=== PATIENT | female | born 1960 | race Caucasian/White ===

== ENCOUNTER 2022-08-04 23:27 | Emergency (ER) | payer OTHER, SELFPAY ==
[2022-08-04 23:38] VITALS: BP 140/93; RESP 12; TEMP 36.3; O2SAT 98; BMI 38.7
[2022-08-04 23:40] VITALS: BP 140/96; PULSE 96; RESP 16; O2SAT 98
[2022-08-05] VITALS: BP 127/74; PULSE 90; RESP 16; O2SAT 96
--- NOTE | 2022-08-05 00:37 | CRLHL7_ITS ---
For Patients: As a result of the Cures Act, medical imaging exams and procedure reports are released immediately into your electronic medical record. You may view this report before your referring provider. If you have questions, please contact your health care provider. INDICATION: Epigastric chest pain TECHNIQUE: Chest radiograph 2 views COMPARISON: None FINDINGS: Mediastinum: The mediastinum is normal in appearance. The heart silhouette is normal in size and morphology. Eventration of the anterior right hemidiaphragm is noted. Lung: Both lungs are unremarkable in appearance. No sign of pleural effusion seen. No pneumothorax is identified. Bone and Soft tissue: Unremarkable for age. IMPRESSION: 1. No acute cardiopulmonary disease is seen. Dictated by Ezra Crane MD @ 08/05/2022 1:25:42 AM Dictated by: Ezra Crane MD @ 08/05/2022 01:25:49 (Electronically Signed)
--- NOTE | 2022-08-05 00:38 | ED_ITS ---
HPI - General Adult General Chief complaint: Abdominal Pain Stated complaint: upper sharp pain in left abdomin/back Time Seen by Provider: 08/05/22 00:28 Source: patient and family Mode of arrival: ambulatory Limitations: no limitations History of Present Illness HPI narrative: 61-year-old female with no prior cardiac history presents to the emergency department with epigastric pain that started 2 hours prior to my assessment time. Came on gradually. Last meal had been about 4 hours prior. At the time of my exam, pain has completely resolved. She tried taking Pepcid AC about 15 minutes after the discomfort started. Now, her pain is completely resolved, having lasted about 90 minutes. Pain was aching in nature, radiated around to the back, accompanied by some mild nausea. She did have an episode of loose stools as well. No trauma or injury, no palpitations, no shortness of breath, no diaphoresis or dizziness. No syncope. No history of arrhythmia. No prior history of coronary artery disease, stress testing or echo. No alcohol tonight. No prior history of similar symptoms. EMR does not reveal a family history of heart disease. She is a nonsmoker. Past medical history is notable for hypertension. Also has a history of breast cancer. Medications reviewed and updated from EMR. She denies drug allergies. Socially she is nonsmoker, denies any current intoxication. ROS is notable for the cardiovascular and GI symptoms as above, otherwise denies times 12 systems. Related Data Home Medications Medication Instructions Recorded Confirmed amlodipine 5 mg tablet 5 mg PO DAILY 07/15/22 07/15/22 losartan 50 mg tablet 50 mg PO DAILY 07/15/22 07/15/22 metoprolol succinate 50 mg mg PO 07/16/22 07/16/22 tablet,extended release 24 hr Allergies Allergy/AdvReac Type Severity Reaction Status Date / Time No Known Drug Allergies Allergy Verified 07/16/22 09:25 [facility] Medical History Breast cancer (2010) Left foot pain Left knee pain Family History Father Bladder cancer Primary cancer of esophagus Mother Diabetes Social History Smoking Status: Never smoker Do you use any of these nicotine containing products: None Second hand tobacco smoke exposure: No How often do you have a drink containing alcohol: 2-4 times a month How many standard drinks containing alcohol do you have on a typical day: 1 or 2 How often do you have six or more drinks on one occasion: Never AUDIT-C Alcohol total score: 2 Non-prescribed substance use: denies use Are you now , , , , never or living with a partner: Social isolation score (0-1 are the most socially isolated patients): 1 service: No Exam Const: Vital Signs, click to edit/add: Vital Signs - 24 hr 08/04/22 23:38 08/04/22 23:40 08/05/22 00:00 Temperature 97.4 F L Pulse Rate [Femora l] 96 Pulse Rate [Pulse Oximeter] 90 Respiratory Rate 12 16 16 Blood Pressure [Ri ght Upper Arm] 140/93 H 140/96 H 127/74 Pulse Oximetry 98 98 96 Oxygen Delivery Me thod Room Air Room Air Room Air 08/05/22 01:29 08/05/22 02:03 Temperature Pulse Rate [Femora l] Pulse Rate [Pulse Oximeter] 95 97 Respiratory Rate 16 18 Blood Pressure [Ri ght Upper Arm] 126/80 132/85 Pulse Oximetry 98 98 Oxygen Delivery Me thod Room Air Room Air Documenting provider has reviewed patient's vital signs: yes Common normals: no apparent distress and alert General appearance: cooperative, comfortable and well kempt HENMT: Common normals: normocephalic Head and scalp: normocephalic Face and sinus: normal facial exam Mouth: oral and palatal mucosa normal Throat: posterior oropharynx normal Eye: Common normals: EOMs intact bilaterally and conjunctivae normal Conjunctiva: conjunctiva(e) normal Neck & C-Spine: Common normals: full ROM and no lymphadenopathy Resp: Common normals: normal respiratory effort, no use of accessory muscles and clear to auscultation bilaterally Effort & inspection: able to speak in complete sentences Auscultation: clear to auscultation bilaterally Cardio: Common normals: regular rate, regular rhythm, S1 normal heart sound, S2 normal heart sound, no murmurs and peripheral pulses 2+ throughout Rate: regular rate Rhythm: regular rhythm Heart sounds: S1 normal and S2 normal Peripheral pulses: pulses 2+ throughout GI: Common normals: Normal to inspection, nondistended, normoactive bowel sounds present, soft to palpation, non-tender, no hepatosplenomegaly and no masses Palpation: soft and no hepatosplenomegaly Other: Pain not reproducible on exam : Common normals: no CVA tenderness Bladder/kidney exam: no CVA tenderness Back & Pelvis: Common normals: no CVA tenderness Extremity: Common normals: normal to inspection, normal capillary refill and no pedal edema Neuro: Sensorium/orientation: alert Speech: speech normal Motor exam: no tremor noted and no movement abnormalities noted Psych: Common normals: mental status grossly normal Appearance: well kempt Insight: insight good Judgement: judgment good Skin: Common normals: no rashes or lesions noted General skin exam: no rashes or lesions noted Course Vital Signs Vital signs: Initial Vital Signs Temperature 97.4 F L 08/04/22 23:38 Temperature Source Temporal Artery Scan 08/04/22 23:38 Respiratory Rate 12 08/04/22 23:38 Blood Pressure 140/93 H 08/04/22 23:38 Blood Pressure Mean 108 08/04/22 23:38 Pulse Oximetry 98 08/04/22 23:38 Oxygen Delivery Method 08/04/22 23:38 Vital Signs Temperature 97.4 F L 08/04/22 23:38 Respiratory Rate 12 08/04/22 23:38 Blood Pressure 140/93 H 08/04/22 23:38 Pulse Oximetry 98 08/04/22 23:38 Oxygen Delivery Method 08/04/22 23:38 Temperature 97.4 F L 08/04/22 23:38 Pulse Rate 97 08/05/22 02:03 Respiratory Rate 18 08/05/22 02:03 Blood Pressure 132/85 08/05/22 02:03 Pulse Oximetry 98 08/05/22 02:03 Oxygen Delivery Method 08/05/22 02:03 Medical Decision Making [facility] Narrative Medical decision making narrative: 7-year-old female with history of hypertension, no prior cardiac disease presenting with epigastric pain that was relieved after taking Pepcid. Does have risk factors for heart disease but reassuring exam. Offered basic workup to look for any underlying cardiac cause and she was agreeable to this. Will perform troponin, EKG, electrolytes, CBC and a chest x-ray to look for any mediastinal widening. Also basic labs to look at liver function and lipase. Albert godoy was agreeable to this. Will update once results available. Update: Patient remains completely symptom-free with no medications given in the ED. Mild leukocytosis is noted, mild elevation of liver enzymes in a nonobstructive pattern noted as well. Or gallstone or underlying gallbladder disease but again afebrile and symptom free. Patient was worried about her heart, this has been ruled out, findings discussed with patient. Counseled that ultrasound could be used to look more closely at the gallbladder, we would need to call someone in an that would take this at least a couple of hours to get results. We discussed conservative management and returning if symptoms worsen. She was agreeable to this. A passed gallstone could explain the mild leukocytosis and mild elevation in transaminases, borderline lipase. Since she was quite symptomatic and is now symptom-free, this makes me lean more towards having passed a gallstone. She was observed for several hours in the ED with no return of her symptoms. She elects for conservative home management, discussed return for recurrence, alarm symptoms that would make me think of cholecystitis, she was agreeable to this. Lab Data Lab results reviewed: Yes I reviewed the patient's lab results Lab results narrative: Mild leukocytosis and elevation in liver enzymes but pain is completely resolved. Repeat exam is reassuring as well. Discussed conservative management versus ultrasound. No sign of heart disease. Patient is agreeable to a trial of conservative management and returning if pain returns. Discussed concern for underlying gallbladder disease, but nonobstructive pattern. Patient reliable for follow-up and was not given any medications in the ER that would be masking her symptoms. Instructed to follow up with primary care provider to have liver enzymes rechecked in a week. Labs: Lab Results 08/05/22 08/05/22 08/05/22 Range/Units 00:37 01:05 01:05 WBC 15.54 H (4.50-11.00) K/uL RBC 4.41 (4.00-5.20) m/uL Hgb 14.2 (12.0-16.0) gm/dL Hct 42.3 (33.0-51.0) % MCV 96 (80-100) fL MCH 32 (26-34) pg MCHC 34 (32-36) gm/dL RDW Coeff of Darryl 12.0 (11.5-15.5) % Plt Count 334 (140-440) K/uL Neut % (Auto) 79.8 H (42.0-72.0) % Lymph % (Auto) 11.1 L (20-44) % Gregg % (Auto) 7.7 (0.0-11.0) % Eos % (Auto) 0.8 (0.0-7.0) % Baso % (Auto) 0.3 (0.0-3.0) % Neut # (Auto) 12.40 H (1.7-7.0) K/uL Lymph # (Auto) 1.70 (0.90-2.90) K/uL Gregg # (Auto) 1.20 H (0.00-0.90) K/UL Eos # (Auto) 0.10 (0.00-0.50) K/uL Baso # (Auto) 0.00 (0.00-0.30) K/uL Sodium 138 (135-149) mmol/L Potassium 4.3 (3.6-5.1) mmol/L Chloride 102 (96-114) mmol/L Carbon Dioxide 29 (20-32) mmol/L BUN 22 (7-30) mg/dL Creatinine 0.7 (0.5-1.5) mg/dL Estimated Creat Clear 80.01 Estimated GFR 99 ml/min Glucose 86 (60-115) mg/dL Calcium 9.4 (8.4-10.6) mg/dL Total Bilirubin 0.7 (0.1-1.5) mg/dL AST 127 H (12-35) U/L ALT 78 H (4-35) U/L Alkaline Phosphatase 53 (40-150) U/L Troponin I < 0.01 L (0.01-0.04) ng/mL NT-Pro-B Natriuret Pep 26 pg/mL Total Protein 7.4 (6.0-8.3) g/dL Albumin 4.5 (3.3-5.0) g/dL Lipase 310 H (23-300) U/L POC Troponin I 0.01 (0.01-0.04) ng/ml Imaging Data Chest x-ray: Attestation: I have reviewed the pertinent imaging results. My impression: Normal Radiologist's impression: IMPRESSION: 1. No acute cardiopulmonary disease is seen. ECG Data Attestation: I personally reviewed and interpreted this ECG as follows: Prior ECG tracings: not available for review Interpretation: No prior EKG. Normal sinus rhythm with good R-wave progression, no left ventricular hypertrophy, normal axis. No significant ST or T-wave abnormalities. Discharge Plan Discharge Clinical Impression: Gallstone Patient Disposition: Home w/ Parent or Adult Condition: Improved Instructions: Gallstones (ED) Additional Instructions: I am glad that your symptoms resolved. As we discussed, I still think this may have been related to your gallbladder. Episodes of pain do tend to last a couple of hours, taking stomach acid medicine may have been coincidental that it helped or your symptoms could be related to gastric reflux. There is a very mild elevation in your liver enzymes, this can be related to more of a mid Western diet and fatty liver, or this could have been mildly inflamed from this gallstone. Since your pain has been completely resolved, I do not recommend that we do an ultrasound today. Eat a bland, low-fat diet for the next 48 hours. No alcohol for the next 3 days. If you continue to have these episodes, this is a sign that we should consider removing her gallbladder. As we also discussed, if you start running a fever, have worsening of symptoms that this could be a sign of infection and I would want for you to come back. It is okay to take Tylenol and/or ibuprofen, but if your symptoms are bothersome, especially if accompanied by fever, please come back to the ER. I would recommend that you make a follow-up appointment with your primary care provider to have your liver enzymes rechecked in 5-10 days. If you continue to have mild symptoms, ultrasound could also be ordered outpatient. Activity Level: Activity as Tolerated Discharge Diet: Low Fat/Low Cholesterol Prescriptions: No Action amlodipine 5 mg tablet 5 mg PO DAILY losartan 50 mg tablet 50 mg PO DAILY metoprolol succinate 50 mg tablet extended release 24 hr PO Label Comments: TAKE ONE TABLET BY MOUTH ONE TIME DAILY Follow Up/Referrals: Danay Zaidi MD [Primary Care Provider] - Stand Alone Forms: [employer] Instructions
[2022-08-05 01:22] LABS: Basophils Percent Auto 0.3 % (0.0-3.0); Eosinophils Percent Auto 0.8 % (0.0-7.0); Hematocrit 42.3 % (33.0-51.0); Hemoglobin* 14.2 gm/dL (12.0-16.0); Immature Granulocytes Pct Auto 0.3 %; Lymphocytes Percent Auto 11.1 % (20-44); Mean Corpuscular HGB Conc 34 gm/dL (32-36); Mean Corpuscular Hemoglobin 32 pg (26-34); Mean Corpuscular Volume 96 fL (80-100); Monocytes Percent Auto 7.7 % (0.0-11.0); Neutrophils Percent Auto 79.8 % (42.0-72.0); Platelet Count* 334 K/uL (140-440); Red Blood Count 4.41 m/uL (4.00-5.20); White Blood Count* 15.54 K/uL (4.50-11.00)
[2022-08-05 01:23] LABS: Troponin, Point-of-Care* 0.01 ng/ml (0.01-0.04)
[2022-08-05 01:24] LABS: Slide Review Reflex No
[2022-08-05 01:29] VITALS: BP 126/80; PULSE 95; RESP 16; O2SAT 98
[2022-08-05 01:36] LABS: Albumin* 4.5 g/dL (3.3-5.0); Chloride* 102 mmol/L (96-114); Potassium* 4.3 mmol/L (3.6-5.1); Sodium* 138 mmol/L (135-149)
[2022-08-05 01:38] LABS: Bilirubin Total* 0.7 mg/dL (0.1-1.5); Creatinine* 0.7 mg/dL (0.5-1.5); Est. Creatinine Clearance* 80.01; Estimated Glomerular Filt Rate 99 ml/min
[2022-08-05 01:39] LABS: Alanine Aminotransferase* 78 U/L (4-35); Alkaline Phosphatase* 53 U/L (40-150); Aspartate Amino Transferase* 127 U/L (12-35); Blood Urea Nitrogen* 22 mg/dL (7-30); Carbon Dioxide* 29 mmol/L (20-32); Glucose* 86 mg/dL (60-115); Lipase* 310 U/L (23-300); Total Protein* 7.4 g/dL (6.0-8.3)
[2022-08-05 01:40] LABS: Calcium* 9.4 mg/dL (8.4-10.6)
[2022-08-05 01:49] LABS: NT Pro B Type NatriureticPept* 26 pg/mL
[2022-08-05 01:51] LABS: Troponin I* < 0.01 ng/mL (0.01-0.04)
[2022-08-05 02:03] VITALS: BP 132/85; PULSE 97; RESP 18; O2SAT 98
== END 2022-08-05 02:15 | disposition home or self-care (01) ==
PROVIDERS: Emergency Provider Family Medicine; PCP Family Medicine
DX: K80.20 Calculus of gallbladder without cholecystitis without obstruction (principal)
CPT/HCPCS: 36415; 71046; 80053; 83690; 83880; 84484; 85025; 93005; 99283; 99284

== ENCOUNTER 2022-09-16 09:59 | Day surgery (SDC) | payer OTHER, SELFPAY ==
[2022-09-16] VITALS (20 sets, daily range): BP systolic 101–147; BP diastolic 66–96; PULSE 71–97; RESP 16–20; TEMP 36.2–37.4; O2SAT 93–97; BMI 45.8
[2022-09-16] MEDS: LACTATED RINGERS 1000 ML 1,000 ML 100 ML IV (10:45)
[2022-09-16] MEDS: SODIUM CHLORIDE 0.9 % (FLUSH) 10 ML SYRINGE IVF (10:46)
[2022-09-16] MEDS: OXYCODONE (CR) 10 MG TAB.ER.12H PO (10:50)
[2022-09-16] MEDS: CELECOXIB 200 MG CAPSULE PO (10:50)
[2022-09-16] MEDS: ACETAMINOPHEN 500 MG TABLET 1000 MG PO ×3 (10:50→22:19)
[2022-09-16] MEDS: MIDAZOLAM HCL 1 MG/ML inj IVP (11:08)
[2022-09-16] MEDS: fentaNYL 100 MCG/2 ML inj IVP (11:08)
--- NOTE | 2022-09-16 11:18 | P.NB_ITS ---
Nerve Block Nerve Block Time Seen by Provider: 11:14 Date Seen: 09/16/22 Type of block requested by surgeon for post-operative analgesia: adductor canal Side: right Time out performed: Yes Verification of patient name: Yes Verification of date of : Yes Site marking: site marked Name of person performing procedure: Joseluis Continuous monitoring Was continuous monitoring of O2 sat, B/P, secured entrance monitor, recorded every 15 minutes?: Yes Procedure Checklist: sterile prep, needles and gloves Ultrasound guided. Images saved: Yes Medications given in 5ml increments after negative aspiration: Ropivicaine %: 0.5 mL: 20 Needle gauge: 20 Decadron (mg): 10 Precedex (mcg): 25 Patient tolerated procedure well: Yes Additional comments: Needle noted adjacent to nerve Block Charges Block Charge (with Pro Fee): Femoral Nerve Use of Ultrasound Machine for Block: Yes- US Guidance/pain block
--- NOTE | 2022-09-16 11:18 | W.PM.NB ---
Nerve Block Nerve Block Time Seen by Provider: 11:14 Date Seen: 09/16/22 Type of block requested by surgeon for post-operative analgesia: geniculars Side: right Time out performed: Yes Verification of patient name: Yes Verification of date of : Yes Site marking: site marked Name of person performing procedure: Joseluis Continuous monitoring Was continuous monitoring of O2 sat, B/P, quality assurance monitor body, recorded every 15 minutes?: Yes Procedure Checklist: sterile prep, needles and gloves Medications given in 5ml increments after negative aspiration: Ropivicaine %: 0.5 mL: 9 Needle gauge: 25 Patient tolerated procedure well: Yes Block Charges Block Charge (with Pro Fee): Genicular Nerve Block Use of Ultrasound Machine for Block: No
--- NOTE | 2022-09-16 11:19 | SUR.PREOP ---
TIME?OUT:?1105, right knee PT/RN/MDA?VERIFICATION?OF?SURGICAL?SITE,?PROCEDURE,?AND?CONSENT OBTAINED?PRIOR?TO?INVASIVE?PROCEDURE.
--- NOTE | 2022-09-16 11:19 | W.ANESCHARGE ---
Anesthesia Charges Start Date/Time Anesthesia Start Date: 09/16/22 Anesthesia Start Time: 11:20 Stop Date/Time Anesthesia Stop Date: 09/16/22 Anesthesia Stop Time: 14:11
[2022-09-16] MEDS: TRANEXAMIC ACID 100 MG/ML INJ 1000 MG IV (11:30)
[2022-09-16] MEDS: CEFAZOLIN 2 GM INJ IVP (11:35)
--- NOTE | 2022-09-16 12:53 | CRLHL7_ITS ---
For Patients: As a result of the Cures Act, medical imaging exams and procedure reports are released immediately into your electronic medical record. You may view this report before your referring provider. If you have questions, please contact your health care provider. Indication: POST OP TKA Technique: Two views right knee Findings/Impression: Hardware from a right total knee arthroplasty is in satisfactory position. Bone alignment is normal. No sign of acute fracture. Postop changes are within normal limits. Dictated by Reginald Denis MD @ 09/16/2022 3:20:53 PM (Electronically Signed)
--- NOTE | 2022-09-16 12:57 | PM.ORPRC ---
Procedure Note Date of procedure: 09/16/22 Procedure: PREOPERATIVE DIAGNOSIS: Right knee osteoarthritis POSTOPERATIVE DIAGNOSIS: Right knee osteoarthritis NAME OF OPERATION: Right total knee arthroplasty SURGEON: Sivakumar Santiago MD RAW SILK GRADER: Jesenia Shabazz PA-C ANESTHESIA: Spinal ESTIMATED BLOOD LOSS: 0 mL COMPLICATIONS: None SPECIMENS: None DRAINS: None PREOPERATIVE ANTIBIOTICS: Ancef 3 grams, antibiotic impregnated cement IMPLANTS: 1. J&J Attune #4 posterior stabilized femur 2. #4 fixed-bearing tibia, with a short stem 3. #4 posterior stabilized, 5 mm fixed-bearing polyethylene 4. 35 patella INDICATIONS: The patient is a 62-year-old with a longstanding history of severe, unrelenting right knee pain secondary to end-stage (grade IV) right knee osteoarthritis. Despite appropriate nonoperative management, including activity modification, anti-inflammatories, [id number] pain medication, bracing, physical therapy, and injections they continue to have pain and disability. Operative intervention was offered. The risks, benefits and expected outcomes were discussed in detail. These included but were not limited to: Infection, bleeding, injury to blood vessel or nerve, venous thromboembolism. All questions were answered to their satisfaction. Use of an respiratory care assistant was necessary throughout the case for patient positioning and safety, soft tissue retraction, and closure. A modifier 22 should be added to this case. The patient's weight of 121 kg with a BMI of 46 kg/meter squared made exposure difficult. Additionally, there is a 50 mm layer of adipose over the extensor mechanism. Finally, we decided to stem the tibial component given the above factors. All of these things added 50% to the time typically required to complete the case. PROCEDURE: Spinal anesthesia was administered. The patient was placed supine on the operating table. The respiratory care assistant made sure the patient was positioned appropriately. The lower extremity was prepped and draped in the usual sterile fashion. The limb was exsanguinated with the Dean bandage. The pneumatic tourniquet was inflated to 300 mmHg. A standard anterior incision was made with the knee in flexion. Subcutaneous dissection was sharply taken through fascial layer #1. Full-thickness medial and lateral flaps were elevated. The respiratory care assistant retracted the soft tissues and protected them throughout the case. A standard medial parapatellar approach was made. The patella was everted. The infrapatellar fat pad was preserved. The menisci and cruciate ligaments were sharply d?brided. Marginal osteophytes were d?brided with the rongeur. The drill was used to penetrate the femoral canal. The canal was aspirated and irrigated with pulse lavage. The intramedullary femoral guide was placed for a 5-degree valgus cut, removing 10 mm off the distal femur. The saw was used to make the cut. Whitesides line and the trans epicondylar axis were marked. The femoral sizing guide was pinned onto the distal femur. Three degrees of external rotation nicely parallels the transepicondylar axis. Pins were placed for posterior referencing. The four-in-one cutting guide was pinned onto the distal femur. The anterior, posterior, and chamfer cuts were made. The respiratory care assistant protected the collateral ligaments. The box cutting guide was pinned. The box cuts were made. The boxed trial was placed and was an excellent fit. Drill holes for the lugs were made. Attention was then turned to the proximal tibia. The extramedullary tibial guide was placed for a neutral varus/valgus cut with 5 degrees of posterior slope, removing 1 mm based off the medial tibial surface. The respiratory care assistant protected the collateral ligaments and the neurovascular bundle. The saw was used to make the cut. Trial components were placed. The knee was nicely balanced in both flexion and extension. The trial components were removed. The tray was placed in appropriate rotation, parallel to our tibial cutting pins. It was pinned by the respiratory care assistant and the drill and the punch were used. The tray was removed. The punch was used again. We placed a bone plug in the femoral canal. Attention was then turned to the patella. [place] patellar thickness was 22 mm. The lobster claw resection guide was used with the 9.5 mm scarlet. The saw was used to make the cut. Drill holes were made by the respiratory care assistant. The trial was placed and was an excellent fit. Cancellous surfaces were irrigated with pulse lavage and thoroughly dried by the respiratory care assistant. We cemented the tibial component, then the femoral component. We impacted the 5 mm polyethylene onto the tibial tray. The knee was brought into full extension. We then cemented the patellar component. Excessive cement was removed. The cement was allowed to harden. The knee was taken through a range of motion and was found to be nicely balanced in both flexion and extension. The patella tracks centrally. The respiratory care assistant did a three minute dilute Betadine solution soak. The respiratory care assistant irrigated the wound with 3 liters of normal saline via pulse lavage. The respiratory care assistant reapproximated the extensor mechanism with #1 Vicryl in an interrupted [id number] fashion. The respiratory care assistant then ran the extensor mechanism with a #1 PDO Stratafix. The respiratory care assistant closed the subcutaneous tissues with a 3-0 Stratafix and the skin with a running 3-0 Stratafix in a subcuticular fashion. Glue was used to seal the skin. The respiratory care assistant placed a dry dressing, DEONTE stocking, and Polar Care. Sponge and needle counts were correct x2. The patient tolerated the procedure well. There were no apparent complications. They were carefully transferred to the hospital bed and taken to the postanesthesia care unit in satisfactory condition. PLAN: The patient will be mobilized with physical therapy. Aspirin will be used for DVT prophylaxis. They will be discharged to home once medically appropriate.
--- NOTE | 2022-09-16 14:38 | W.ANESCHARGE ---
Anesthesia Charges Start Date/Time Anesthesia Start Date: 09/16/22 Anesthesia Start Time: 11:20 Stop Date/Time Anesthesia Stop Date: 09/16/22 Anesthesia Stop Time: 14:11
--- NOTE | 2022-09-16 17:26 | P.IMCN_ITS ---
Date of Consult Patient: Herman Patient Consult date: 09/16/22 Requesting Physician: Orthopedics Primary Care Provider: Danay Zaidi MD Consult Narrative Reason for consult: Management of medical problems Narrative: Olga Griffiths is a 62 year old female seen in followup of right total knee arthroplasty for management of medical problems. Procedure performed by Dr. Santiago today. There were no operative complications. Postoperatively she is doing well though she is beginning to have some pain in her right knee. Her spinal block has worn off. She has no nausea or chills. Preoperatively she was doing well. She had no recent illness. She had a preop physical where there were no significant concerns about perioperative management. No previous history of problems with anesthesia bleeding or clotting. Review of Systems Narrative: She reports feeling well recently. She has no other health concerns. reports that she does snore. She also has daytime sleepiness. [facility] Medical History (Updated 09/16/22 @ 17:33 by Naresh Sánchez MD) Breast cancer (2010) Hypertension Left foot pain Left knee pain Obesity Sleep apnea Surgical History (Updated 09/16/22 @ 17:31 by Naresh Sánchez MD) H/O thyroidectomy (~2020) History of lumpectomy of right breast (~2010) Family History Father Bladder cancer Primary cancer of esophagus High blood pressure Mother Diabetes High blood pressure Sister Diabetes Social History (Updated 09/16/22 @ 17:29 by Naresh Sánchez MD) Narrative: She lives with her in a two-story house or the entry is on the lower level. She has to climb 15 steps to get to the upper level where she can live on that level. Her has had both knees replaced in the last year and feels they can manage at home. Smoking Status: Never smoker Do you use any of these nicotine containing products: None Second hand tobacco smoke exposure: No How often do you have a drink containing alcohol: 2-4 times a month Alcohol type: beer and wine How many standard drinks containing alcohol do you have on a typical day: 1 or 2 How often do you have six or more drinks on one occasion: Never AUDIT-C Alcohol total score: 2 Non-prescribed substance use: denies use Caffeine: Yes (coffee, 1 cup/am) Are you now , , , , never or living with a partner: Social isolation score (0-1 are the most socially isolated patients): 1 service: No Meds Home Medications and Allergies Home Medications Medication Instructions Recorded Confirmed Type amlodipine 5 mg tablet 5 mg PO DAILY 07/15/22 09/16/22 History losartan 50 mg tablet 50 mg PO BID 07/15/22 09/16/22 History metoprolol succinate 50 mg 50 mg PO DAILY 07/16/22 09/16/22 History tablet,extended release 24 hr Home Medication Comments: Losartan was held this morning Allergies Allergy/AdvReac Type Severity Reaction Status Date / Time No Known Drug Allergies Allergy Verified 09/16/22 10:15 Exam Narrative: Exam Narrative: She is alert appears in no distress. Speech is normal. Eyes normal. Oropharynx normal except for small airway. Neck is supple without mass or adenopathy. Respirations are clear to auscultation. Cardiovascular: S1, S2, regular rate and rhythm. Abdomen is soft without tenderness or mass. Extremities with intact pulses and sensation. She moves both feet and ankles well. Const: Vital Signs, click to edit/add: Vital Signs - 24 hr 09/16/22 10:26 09/16/22 11:10 09/16/22 14:07 Temperature 99.3 F 97.8 F Pulse Rate 92 86 77 Pulse Rate [Right Pulse Oximeter] Respiratory Rate 20 20 16 Blood Pressure 140/87 H 147/90 H 101/72 Blood Pressure [Le ft Arm] Pulse Oximetry 94 97 96 Oxygen Delivery Me thod Room Air Nasal Cannula OxyMask Oxygen Flow Rate 3 6 09/16/22 14:10 09/16/22 14:15 09/16/22 14:20 Temperature Pulse Rate 76 71 76 Pulse Rate [Right Pulse Oximeter] Respiratory Rate 18 18 16 Blood Pressure 107/66 109/74 114/77 Blood Pressure [Le ft Arm] Pulse Oximetry 96 97 94 Oxygen Delivery Me thod Room Air Oxygen Flow Rate 09/16/22 14:25 09/16/22 14:30 09/16/22 14:35 Temperature 97.2 F L Pulse Rate 73 79 76 Pulse Rate [Right Pulse Oximeter] Respiratory Rate 16 19 18 Blood Pressure 117/83 127/85 127/82 Blood Pressure [Le ft Arm] Pulse Oximetry 94 93 93 Oxygen Delivery Me thod Oxygen Flow Rate 09/16/22 15:00 09/16/22 14:46 09/16/22 15:00 Temperature 97.2 F L 97.2 F L Pulse Rate 79 Pulse Rate [Right Pulse Oximeter] 88 Respiratory Rate 18 18 Blood Pressure Blood Pressure [Le ft Arm] 120/84 119/83 Pulse Oximetry 93 93 Oxygen Delivery Me thod Room Air Room Air Oxygen Flow Rate 0 0 09/16/22 15:15 09/16/22 15:30 09/16/22 16:00 Temperature Pulse Rate Pulse Rate [Right Pulse Oximeter] 80 82 82 Respiratory Rate 18 18 16 Blood Pressure Blood Pressure [Le ft Arm] 131/90 H 141/96 H 124/80 Pulse Oximetry 96 97 96 Oxygen Delivery Me thod Room Air Room Air Room Air Oxygen Flow Rate 0 0 0 09/16/22 16:30 Temperature Pulse Rate Pulse Rate [Right Pulse Oximeter] 78 Respiratory Rate 18 Blood Pressure Blood Pressure [Le ft Arm] 131/80 Pulse Oximetry 97 Oxygen Delivery Me thod Room Air Oxygen Flow Rate 0 Documenting provider has reviewed patient's vital signs: yes Assessment and Plan Assessment and plan (1) History of total right knee replacement: Problem comment: 09/16/2022, Dr. Santiago Status: Acute (2) Hypertension: Problem comment: Resume blood pressure medicines as needed Status: Acute (3) Sleep apnea: Problem comment: Clinically suspected. Recommend outpatient follow-up Status: Suspected Plan Anticipate for routine management of pain. Routine therapy. Monitor for complications related to sleep apnea. Initiate blood pressure medicines as blood pressure requires. Total time spent today is 35 minutes, 25 minutes in coordination care and discussing with patient and and other providers ongoing evaluation management of medical problems after surgery
[2022-09-16] MEDS: OXYCODONE 5 MG TABLET PO ×3 (17:30→22:18)
[2022-09-16] MEDS: CEFAZOLIN 3 GM in 0.9 % SODIUM CHLORIDE 100 ml 100 ML IVPB (17:45)
--- NOTE | 2022-09-16 19:07 | PC.NURSE ---
up to floor at 1500 awake and alert. pain 5/10 - tylenol and oxy given thus far. up in chair for dinner, tolerated eggs and toast. spouse at bedside. IV running at 75ml/hr. surgical dressing CDI
[2022-09-16] MEDS: LACTATED RINGERS 1000 ML 1,000 ML 75 ML IV (19:28)
[2022-09-16] MEDS: ASPIRIN 81 MG TABLET EC PO (22:19)
[2022-09-16] MEDS: SENNOSIDES 1 TAB TABLET 2 TAB PO (22:19)
[2022-09-17 03:00] VITALS: BP 128/84; PULSE 91; RESP 16; TEMP 36.4; O2SAT 91
[2022-09-17] MEDS: CEFAZOLIN 3 GM in 0.9 % SODIUM CHLORIDE 100 ml 100 ML IVPB ×2 (03:12→09:53)
[2022-09-17] MEDS: ACETAMINOPHEN 500 MG TABLET 1000 MG PO (03:12)
[2022-09-17] MEDS: OXYCODONE 5 MG TABLET PO ×3 (03:13→10:45)
[2022-09-17 06:55] LABS: Hematocrit 39.1 % (33.0-51.0); Hemoglobin* 13.2 gm/dL (12.0-16.0); Immature Granulocytes Pct Auto 0.4 %; Lymphocytes Percent Auto 4.7 % (20-44); Mean Corpuscular HGB Conc 34 gm/dL (32-36); Mean Corpuscular Hemoglobin 32 pg (26-34); Mean Corpuscular Volume 94 fL (80-100); Neutrophils Percent Auto 88.9 % (42.0-72.0); Platelet Count* 352 K/uL (140-440); RDW Coefficient of Variation % 12.1 % (11.5-15.5); Red Blood Count 4.16 m/uL (4.00-5.20); White Blood Count* 16.18 K/uL (4.50-11.00)
[2022-09-17 07:00] VITALS: BP 142/78; PULSE 98; RESP 16; TEMP 37.2; O2SAT 91
[2022-09-17 07:01] LABS: Slide Review Reflex No
[2022-09-17 07:11] LABS: INR 1.03 (0.91-1.10); Potassium* 4.2 mmol/L (3.6-5.1); Prothrombin Time 14.2 Seconds; Sodium* 136 mmol/L (135-149)
[2022-09-17 07:14] LABS: Blood Urea Nitrogen* 17 mg/dL (7-30); Creatinine* 0.6 mg/dL (0.5-1.5); Est. Creatinine Clearance* 51.02; Estimated Glomerular Filt Rate 102 ml/min
[2022-09-17] MEDS: METOPROLOL SUCCINATE (XL) 50 MG TAB PO (08:06)
[2022-09-17] MEDS: SENNOSIDES 1 TAB TABLET 2 TAB PO (08:06)
[2022-09-17] MEDS: AMLODIPINE 5 MG TABLET PO (08:07)
[2022-09-17] MEDS: ASPIRIN 81 MG TABLET EC PO (08:08)
--- NOTE | 2022-09-17 08:10 | PC.NURSE ---
Pt alert and oriented x3. Pt reports pain 4-6/10 pain in right knee, pain manage with PRN medications. Pt denies SOB, Chest pain, and N/V. Pt right knee dressing is CDI. Cryo cuff is applied. Pt is up SBA with walker and gait belt. Pt is tolerating regular diet. Pt slept intermittently throughout night.
--- NOTE | 2022-09-17 08:32 | PM.ORPN ---
Subjective Subjective Time Seen by Provider: 07:30 Date Seen: 09/17/22 Principal diagnosis: Status post right knee replacement Interval history: Olga did not sleep well last night. She feels she got about 1 hour of sleep. She is comfortable in the recliner this morning. She will discharge to home later today. Ortho Exam Narrative Exam Narrative: Alert and oriented x3. Patient is in no acute distress. Converses without labored breathing. Hearing is grossly intact. Ambulates with a walker. Examination of the right knee shows the dressing is intact. No erythema or drainage or sign of infection. No palpable effusion. Minimal soft tissue edema about the right knee. Ice pack is in place. CMS intact right lower extremity. Bilateral calves are soft and nontender. Quad strength is strong. Const Vital Signs, click to edit/add: Vital Signs - 24 hr 09/16/22 10:26 09/16/22 11:10 09/16/22 14:07 Temperature 99.3 F 97.8 F Pulse Rate 92 86 77 Pulse Rate [Right Pulse Oximeter] Respiratory Rate 20 20 16 Blood Pressure 140/87 H 147/90 H 101/72 Blood Pressure [Left Arm] Blood Pressure [Right Arm] Pulse Oximetry 94 97 96 Oxygen Delivery Method Room Air Nasal Cannula OxyMask Oxygen Flow Rate 3 6 09/16/22 14:10 09/16/22 14:15 09/16/22 14:20 Temperature Pulse Rate 76 71 76 Pulse Rate [Right Pulse Oximeter] Respiratory Rate 18 18 16 Blood Pressure 107/66 109/74 114/77 Blood Pressure [Left Arm] Blood Pressure [Right Arm] Pulse Oximetry 96 97 94 Oxygen Delivery Method Room Air Oxygen Flow Rate 09/16/22 14:25 09/16/22 14:30 09/16/22 14:35 Temperature 97.2 F L Pulse Rate 73 79 76 Pulse Rate [Right Pulse Oximeter] Respiratory Rate 16 19 18 Blood Pressure 117/83 127/85 127/82 Blood Pressure [Left Arm] Blood Pressure [Right Arm] Pulse Oximetry 94 93 93 Oxygen Delivery Method Oxygen Flow Rate 09/16/22 15:00 09/16/22 14:46 09/16/22 15:00 Temperature 97.2 F L 97.2 F L Pulse Rate 79 Pulse Rate [Right Pulse Oximeter] 88 Respiratory Rate 18 18 Blood Pressure Blood Pressure [Left Arm] 120/84 119/83 Blood Pressure [Right Arm] Pulse Oximetry 93 93 Oxygen Delivery Method Room Air Room Air Oxygen Flow Rate 0 0 09/16/22 15:15 09/16/22 15:30 09/16/22 16:00 Temperature Pulse Rate Pulse Rate [Right Pulse Oximeter] 80 82 82 Respiratory Rate 18 18 16 Blood Pressure Blood Pressure [Left Arm] 131/90 H 141/96 H 124/80 Blood Pressure [Right Arm] Pulse Oximetry 96 97 96 Oxygen Delivery Method Room Air Room Air Room Air Oxygen Flow Rate 0 0 0 09/16/22 16:30 09/16/22 17:00 09/16/22 18:00 Temperature Pulse Rate Pulse Rate [Right Pulse Oximeter] 78 72 81 Respiratory Rate 18 18 18 Blood Pressure Blood Pressure [Left Arm] 131/80 132/82 136/84 Blood Pressure [Right Arm] Pulse Oximetry 97 95 94 Oxygen Delivery Method Room Air Room Air Room Air Oxygen Flow Rate 0 0 0 09/16/22 19:00 09/16/22 23:00 09/16/22 23:00 Temperature Pulse Rate Pulse Rate [Right Pulse Oximeter] 88 Respiratory Rate 18 18 Blood Pressure Blood Pressure [Left Arm] 138/83 Blood Pressure [Right Arm] Pulse Oximetry 95 95 95 Oxygen Delivery Method Room Air Room Air Oxygen Flow Rate 0 0 09/16/22 23:00 09/17/22 03:00 09/17/22 07:00 Temperature 97.5 F L 97.6 F Pulse Rate Pulse Rate [Right Pulse Oximeter] 96 91 Respiratory Rate 16 16 16 Blood Pressure Blood Pressure [Left Arm] 140/85 H 128/84 Blood Pressure [Right Arm] Pulse Oximetry 96 91 91 Oxygen Delivery Method Room Air Room Air Room Air Oxygen Flow Rate 09/17/22 07:00 Temperature 98.9 F Pulse Rate Pulse Rate [Right Pulse Oximeter] 98 Respiratory Rate 16 Blood Pressure Blood Pressure [Left Arm] Blood Pressure [Right Arm] 142/78 H Pulse Oximetry 91 Oxygen Delivery Method Room Air Oxygen Flow Rate Assessment and Plan Assessment and plan (1) History of total right knee replacement: Problem details: 09/16/2022, Dr. Santiago Status: Acute Assessment and Plan: Plan for discharge is today to home if they meet discharge criteria. DVT prophylaxis includes aspirin 81 mg twice daily x1 month, Rayray stockings x1 month may remove for 1 hr per day, frequent ambulation Remove dressing in 1 week. Observe wound and phone Orthopedics with any questions or concerns Return to clinic in 1 week for a wound check Return to clinic in [address] Santiago Minimize narcotic use. Wean off and discontinue soon as possible. Activities as tolerated. No strenuous activity. Outpatient physical therapy as scheduled. Ice and elevate the operative extremity. No restriction on ice. She has sleep apnea. She does not use a CPAP machine. I cautioned her regarding oxycodone and sleeping to minimize her oxycodone. (2) Hypertension: Problem details: Resume blood pressure medicines as needed Status: Acute (3) Sleep apnea: Problem details: Clinically suspected. Recommend outpatient follow-up Status: Suspected
--- NOTE | 2022-09-17 09:16 | PC.SOCIAL ---
Met with pt in pt's room to discuss discharge plans. Pt is going home with her . Pt reports that her had the same surgery last year and she took care of him so they know what to expect and were prepared at home for recovery. Pt reports that everything she needs is on one floor at home. Informed pt if she had any other questions she could reach out to the social work department. Social work will follow up as necessary.
[2022-09-17] MEDS: SODIUM CHLORIDE 0.9 % (FLUSH) 10 ML SYRINGE 5 ML IVF (09:56)
[2022-09-17 10:40] VITALS: BP 127/82; PULSE 79; RESP 16; TEMP 37.2
[2022-09-17 11:27] VITALS: BP 127/82; PULSE 79; RESP 16; TEMP 37.2
== END 2022-09-17 11:13 | disposition home or self-care (01) ==
LOC: OR 09:59 → MEDSURG 10:01
PROVIDERS: PCP Family Medicine; Visit Provider Orthopaedic Surgery
PROC: (CPT 27447; principal; 2022-09-16 11:30)
DX: M17.11 Unilateral primary osteoarthritis, right knee (principal); I10 Essential (primary) hypertension; G47.30 Sleep apnea, unspecified; E66.9 Obesity, unspecified; Z68.42 Body mass index [BMI] 45.0-49.9, adult
CPT/HCPCS: 27447; 01402; 36415; 73560; 76942; 82565; 84132; 84295; 84520; 85025; 85610; 97110; 97116; 97161; 97165; 97535; A9270; C1776; J0690; J1100; J2250; J2405; J2704; J2795; J3010; J7120

== ENCOUNTER 2022-10-27 09:15 | Outpatient (RCR) | payer OTHER, SELFPAY | END 2023-01-29 23:59 | disposition home or self-care (01) | PROVIDERS: PCP Family Medicine; Visit Provider Orthopaedic Surgery | DX: M17.11 Unilateral primary osteoarthritis, right knee (principal); Z51.89 Encounter for other specified aftercare | CPT/HCPCS: 97110; 97162; 97164 ==

== ENCOUNTER 2023-05-31 05:29 | Day surgery (SDC) | payer OTHER, SELFPAY ==
[2023-05-31 05:58] VITALS: BP 192/106; PULSE 86; RESP 20; TEMP 36.6; O2SAT 95; BMI 42.4
--- NOTE | 2023-05-31 06:31 | ED.GENADULT ---
HPI - General Adult General Chief complaint: Abdominal Pain Stated complaint: abdominal pain Time Seen by Provider: 05/31/23 06:30 History of Present Illness HPI narrative: Pt aox4, ABCs intact. Pt arrives with her from home for evaluation of RUQ abdominal pain that started last night ~1700. Patient states that the pain has been constant since. Patient also having nausea. 62-year-old woman presenting to the emergency department with complaint of pain in the right upper quadrant that has been present over the last 12-13 hours. notes this is about the 7th time she has had 1 of these episodes. Did have an ultrasound about a month ago showing gallstones she says. She is scheduled to have a colonoscopy and endoscopy I believe after this weekend. Evidently had a positive Cologuard. She has had some degree of dysphagia which she blames somewhat on anxiety it, but that father apparently had esophageal cancer and so this has her concerned. Has not had a fever. Vomited once arrived in the emergency department. Related Data Home Medications Medication Instructions Recorded Confirmed amlodipine 5 mg tablet 5 mg PO DAILY 07/15/22 05/31/23 losartan 50 mg tablet 50 mg PO BID 07/15/22 05/31/23 metoprolol succinate 50 mg 50 mg PO DAILY 07/16/22 05/31/23 tablet,extended release 24 hr omeprazole 20 mg capsule,delayed 20 mg PO QDAY 05/06/23 05/31/23 release Allergies Allergy/AdvReac Type Severity Reaction Status Date / Time No Known Drug Allergies Allergy Verified 05/31/23 05:58 Review of Systems Status of ROS: Reports: 6 or more systems reviewed and unremarkable except as noted in History and below [facility] Medical History Sleep apnea ?G47.30 - Sleep apnea, unspecified (ICD-10) Obesity ?E66.9 - Obesity, unspecified (ICD-10) Hypertension ?I10 - Essential (primary) hypertension (ICD-10) Breast cancer (2010) ?C50.919 - Malignant neoplasm of unspecified site of unspecified female breast (ICD-10) Left knee pain ?M25.562 - Pain in left knee (ICD-10) Left foot pain ?M79.672 - Pain in left foot (ICD-10) Surgical History History of total right knee replacement (09/16/22) ?Z96.651 - Presence of right artificial knee joint (ICD-10) H/O thyroidectomy (~2020) ?E89.0 - Postprocedural hypothyroidism (ICD-10) History of lumpectomy of right breast (~2010) ?Z98.890 - Other specified postprocedural states (ICD-10) Family History Father Bladder cancer Primary cancer of esophagus High blood pressure Mother Diabetes High blood pressure Sister Diabetes Social History Narrative: She lives with her in a two-story house or the entry is on the lower level. She has to climb 15 steps to get to the upper level where she can live on that level. Her has had both knees replaced in the last year and feels they can manage at home. Smoking Status: Never smoker Do you use any of these nicotine containing products: None Second hand tobacco smoke exposure: No How often do you have a drink containing alcohol: 2-4 times a month Alcohol type: beer and wine How many standard drinks containing alcohol do you have on a typical day: 1 or 2 How often do you have six or more drinks on one occasion: Never AUDIT-C Alcohol total score: 2 Non-prescribed substance use: denies use Caffeine: Yes (coffee, 1 cup/am) Are you now , , , , never or living with a partner: Social isolation score (0-1 are the most socially isolated patients): 1 service: No Exam Narrative: Exam Narrative: Very pleasant. Face is flushed. Looks uncomfortable. Apparently has just vomited. Oropharynx is sticky. Breathing easily; lungs appear to be clear. Heart in regular rate and rhythm. Abdomen is overweight soft. Negative Uribe's. Mildly tender to palpation the right upper quadrant. No peritoneal signs. Extremities are well perfused without edema. Const: Vital Signs, click to edit/add: Vital Signs - 24 hr 05/31/23 05:58 05/31/23 07:18 Temperature 97.8 F 98.1 F Pulse Rate [Pulse Oximeter] 86 98 Respiratory Rate 20 18 Blood Pressure [Ri ght Upper Arm] 192/106 H 133/73 Pulse Oximetry 95 96 Oxygen Delivery Me thod Room Air Room Air Documenting provider has reviewed patient's vital signs: yes Course Vital Signs Vital signs: Initial Vital Signs Temperature 97.8 F 05/31/23 05:58 Temperature Source Temporal Artery Scan 05/31/23 05:58 Pulse Rate 86 05/31/23 05:58 Pulse Rhythm Regular 05/31/23 05:58 Respiratory Rate 20 05/31/23 05:58 Blood Pressure 192/106 H 05/31/23 05:58 Blood Pressure Mean 134 H 05/31/23 05:58 Pulse Oximetry 95 05/31/23 05:58 Oxygen Delivery Method Room Air 05/31/23 05:58 Vital Signs Temperature 97.8 F 05/31/23 05:58 Pulse Rate 86 05/31/23 05:58 Respiratory Rate 20 05/31/23 05:58 Blood Pressure 192/106 H 05/31/23 05:58 Pulse Oximetry 95 05/31/23 05:58 Oxygen Delivery Method Room Air 05/31/23 05:58 Temperature 98.1 F 05/31/23 07:18 Pulse Rate 98 05/31/23 07:18 Respiratory Rate 18 05/31/23 07:18 Blood Pressure 133/73 05/31/23 07:18 Pulse Oximetry 96 05/31/23 07:18 Oxygen Delivery Method Room Air 05/31/23 07:18 Medications Administered Medications: Discontinued Medications Generic Name Dose Route Start Last Admin Trade Name Freq PRN Reason Stop Dose Admin Sodium Chloride 1,000 mls @ 1,000 mls/hr 05/31/23 06:32 05/31/23 06:37 0.9 % Sodium Chloride 1000 Ml IV 05/31/23 07:31 1,000 mls/hr .Q1H ONE Administration Ketorolac Tromethamine 30 mg 05/31/23 06:37 05/31/23 06:44 Ketorolac 30 Mg/Ml Inj IVP 05/31/23 06:38 30 mg ONCE ONE Administration Morphine Sulfate 4 mg 05/31/23 07:07 05/31/23 07:19 Morphine 4 Mg/Ml Inj IVP 05/31/23 07:08 4 mg ONCE ONE Administration Ondansetron HCl 4 mg 05/31/23 06:41 05/31/23 06:48 Ondansetron 2 Mg/Ml Inj IVP 05/31/23 06:42 4 mg ONCE ONE Administration Medical Decision Making MDM Narrative Medical decision making narrative: Suspect this is indeed pain related to gallbladder. She reports having stones. Will treat pain and look for concerning signs of cholecystitis or other infection in her labs. IV fluids, morphine, ketorolac. Labs show moderately elevated transaminases and mildly elevated bilirubin with about half being direct component. White count is not elevated. Normal lipase. I would suspect having passed a gallstone/choledocholithiasis. On reassessment is essentially pain-free; feels a lot better. Did discuss this case with our surgeon on-call. She will continue to have these episodes. Ms. Griffiths however is anxious to have this EGD and colonoscopy and initially wanted to proceed with that and pursue this gallbladder issue outpatient. She then reconsidered and would like to proceed with offered surgery. admission to floor prior to pending surgery in about 4 hours; around noon today. Lab Data Lab results reviewed: Yes I reviewed the patient's lab results Labs: Lab Results 05/31/23 05/31/23 Range/Units 06:25 08:25 WBC 8.74 (4.50-11.00) K/uL RBC 4.54 (4.00-5.20) m/uL Hgb 13.9 (12.0-16.0) gm/dL Hct 41.3 (33.0-51.0) % MCV 91 (80-100) fL MCH 31 (26-34) pg MCHC 34 (32-36) gm/dL RDW Coeff of Darryl 12.0 (11.5-15.5) % Plt Count 320 (140-440) K/uL Neut % (Auto) 89.8 H (42.0-72.0) % Lymph % (Auto) 6.2 L (20-44) % Citrus % (Auto) 3.0 (0.0-11.0) % Eos % (Auto) 0.1 (0.0-7.0) % Baso % (Auto) 0.1 (0.0-3.0) % Neut # (Auto) 7.80 H (1.7-7.0) K/uL Lymph # (Auto) 0.50 L (0.90-2.90) K/uL Citrus # (Auto) 0.30 (0.00-0.90) K/UL Eos # (Auto) 0.01 (0.00-0.50) K/uL Baso # (Auto) 0.01 (0.00-0.30) K/uL Abs Immat Gran (auto) 0.07 (0.00-0.30) K/uL Imm/Tot Granulo (auto) 0.8 % Sodium 137 (135-149) mmol/L Potassium 4.2 (3.6-5.1) mmol/L Chloride 101 (96-114) mmol/L Carbon Dioxide 27 (20-32) mmol/L Anion Gap 9 (7-15) mEq/L BUN 14 (7-30) mg/dL Creatinine 0.6 (0.5-1.5) mg/dL Estimated Creat Clear 53.16 Estimated GFR 102 ml/min Glucose 162 H (60-115) mg/dL Calcium 9.6 (8.4-10.6) mg/dL Total Bilirubin 1.7 H (0.1-1.5) mg/dL Direct Bilirubin 0.8 H (0.0-0.5) mg/dL AST 286 H (12-35) U/L ALT 175 H (4-35) U/L Alkaline Phosphatase 77 (40-150) U/L Troponin I < 0.01 L (0.01-0.04) ng/mL C-Reactive Protein 2.4 H (0.5-1.0) mg/dL Total Protein 7.7 (6.0-8.3) g/dL Albumin 4.7 (3.3-5.0) g/dL Lipase 230 (23-300) U/L Urine Color Yellow (Yellow) Urine Appearance Clear (Clear) Urine pH 7.0 (5.0-8.5) Ur Specific Ruth 1.015 (1.000-1.030) Urine Protein Negative (Negative) Urine Glucose (UA) Negative (Negative) Urine Ketones Negative (Negative) Urine Blood Negative (Negative) Urine Nitrite Negative (Negative) Urine Bilirubin Negative (Negative) Urine Urobilinogen 1.0 (0.2-1.0) Ur Leukocyte Esterase Negative (Negative) Urine RBC 0-2 (0-2) Urine WBC 0-2 (0-5) Ur Squamous Epith Cells Few (None-Few) Amorphous Sediment Few A (None) Urine Bacteria Few A (None) Discharge Plan Discharge Clinical Impression: Choledocholithiasis, Abdominal pain, Cholelithiasis Patient Disposition: XFER to OR Condition: Improved Follow Up/Referrals: Danay Zaidi MD [Primary Care Provider] -
[2023-05-31] MEDS: 0.9 % SODIUM CHLORIDE 1000 ml 1,000 ML IV (06:37)
[2023-05-31] MEDS: KETOROLAC 30 MG/ML inj IVP (06:44)
[2023-05-31] MEDS: ONDANSETRON 2 MG/ML inj 4 MG IVP (06:48)
[2023-05-31 06:52] LABS: Basophils Absolute Auto 0.01 K/uL (0.00-0.30); Basophils Percent Auto 0.1 % (0.0-3.0); Eosinophils Absolute Auto 0.01 K/uL (0.00-0.50); Eosinophils Percent Auto 0.1 % (0.0-7.0); Hematocrit 41.3 % (33.0-51.0); Hemoglobin* 13.9 gm/dL (12.0-16.0); Immature Granulocytes Abs Auto 0.07 K/uL (0.00-0.30); Immature Granulocytes Pct Auto 0.8 %; Lymphocytes Percent Auto 6.2 % (20-44); Mean Corpuscular HGB Conc 34 gm/dL (32-36); Mean Corpuscular Hemoglobin 31 pg (26-34); Mean Corpuscular Volume 91 fL (80-100); Neutrophils Percent Auto 89.8 % (42.0-72.0); Platelet Count* 320 K/uL (140-440); Red Blood Count 4.54 m/uL (4.00-5.20); White Blood Count* 8.74 K/uL (4.50-11.00)
[2023-05-31 06:54] LABS: Slide Review Reflex No
[2023-05-31 06:56] LABS: Chloride* 101 mmol/L (96-114); Potassium* 4.2 mmol/L (3.6-5.1); Sodium* 137 mmol/L (135-149)
[2023-05-31 06:57] LABS: Albumin* 4.7 g/dL (3.3-5.0)
[2023-05-31 06:59] LABS: Creatinine* 0.6 mg/dL (0.5-1.5); Est. Creatinine Clearance* 53.16; Estimated Glomerular Filt Rate 102 ml/min
[2023-05-31 07:00] LABS: Anion Gap 9 mEq/L (7-15); Aspartate Amino Transferase* 286 U/L (12-35); Bilirubin Direct* 0.8 mg/dL (0.0-0.5); Bilirubin Total* 1.7 mg/dL (0.1-1.5); Blood Urea Nitrogen* 14 mg/dL (7-30); Calcium* 9.6 mg/dL (8.4-10.6); Carbon Dioxide* 27 mmol/L (20-32); Glucose* 162 mg/dL (60-115); Total Protein* 7.7 g/dL (6.0-8.3)
[2023-05-31 07:01] LABS: Alanine Aminotransferase* 175 U/L (4-35); Alkaline Phosphatase* 77 U/L (40-150); Lipase* 230 U/L (23-300)
[2023-05-31 07:03] LABS: C Reactive Protein* 2.4 mg/dL (0.5-1.0)
[2023-05-31 07:13] LABS: Troponin I* < 0.01 ng/mL (0.01-0.04)
[2023-05-31 07:18] VITALS: BP 133/73; PULSE 98; RESP 18; TEMP 36.7; O2SAT 96
[2023-05-31] MEDS: MORPHINE 4 MG/ML INJ IVP (07:19)
[2023-05-31 08:33] LABS: Appearance Urine Clear (Clear); Bilirubin Urine Negative (Negative); Blood Urine Negative (Negative); Color Urine Yellow (Yellow); Glucose Urine Negative (Negative); Ketones Urine Negative (Negative); Leukocyte Esterase Urine Negative (Negative); Nitrite Urine Negative (Negative); Protein Urine Negative (Negative); Specific Gravity Urine 1.015 (1.000-1.030)
[2023-05-31 08:40] LABS: Amorphous Sediment Urine Few; Bacteria Urine Few; RBC Urine 0-2 (0-2); Squamous Epithelial Cell Urine Few (None-Few); WBC Urine 0-2 (0-5)
--- NOTE | 2023-05-31 09:48 | ED.NURSE ---
report was called to Ivana cedillo. to 258 via w/c.
[2023-05-31] MEDS: LACTATED RINGERS 1000 ML 1,000 ML 125 ML IV ×2 (10:41→18:09)
--- NOTE | 2023-05-31 12:39 | PM.GSHP ---
History of Present Illness History of Present Illness Date Seen: 05/31/23 Chief complaint: abdominal pain Narrative: Olga Griffiths is a 62 year old female who presented to the emergency department overnight with severe right upper quadrant pain. She states that in July she thought she was having a heart attack and came in to be seen and it was felt as though it was let related to her gallbladder. She had 7 further episodes, the most recent in May. This time her symptoms were different because before her symptoms previously lasted about 3 hours but this time it persisted. She stated it began last evening around 5. The pain is constant in the right upper quadrant radiating to her back. At 5:00 a.m. because the pain would not go away they came into the emergency department. She did vomit when she got here. The pain last evening was a 9/10. Pain meds help her feel better. She has not had any other symptoms, no fevers and no recent change in her bowel habits. She is due to have 80 EGD and colonoscopy tomorrow, the EGD is for dysphagia and the colonoscopy is for positive Cologuard. 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 She has to climb 15 steps to get to the upper level where she can live on that level. Her has had both knees replaced in the last year and feels they can manage at home. Smoking Status: Never smoker Do you use any of these nicotine containing products: None Second hand tobacco smoke exposure: No How often do you have a drink containing alcohol: 2-4 times a month Alcohol type: beer and wine How many standard drinks containing alcohol do you have on a typical day: 1 or 2 How often do you have six or more drinks on one occasion: Never AUDIT-C Alcohol total score: 2 Non-prescribed substance use: denies use Caffeine: Yes (coffee, 1 cup/am) Are you now , , , , never or living with a partner: Social isolation score (0-1 are the most socially isolated patients): 1 service: No Meds Home Medications and Allergies Home Medications Medication Instructions Recorded Confirmed Type amlodipine 5 mg tablet 5 mg PO DAILY 07/15/22 05/31/23 History losartan 50 mg tablet 50 mg PO BID 07/15/22 05/31/23 History metoprolol succinate 50 mg 50 mg PO DAILY 07/16/22 05/31/23 History tablet,extended release 24 hr omeprazole 20 mg capsule,delayed 20 mg PO QDAY 05/06/23 05/31/23 History release Allergies Allergy/AdvReac Type Severity Reaction Status Date / Time No Known Drug Allergies Allergy Verified 05/31/23 05:58 Exam Narrative: Exam Narrative: General appearance: Alert, cooperative, and in no distress Eyes: PERRLA, eye lids clear, and sclera white HENT Head: Normocephalic Ears: External ears normal Pulmonary: Breathing nonlabored on room air Cardiovascular Heart: Regular rate Extremities: warm and well perfused Gastrointestinal Abdominal: Protuberant. No scars. Mildly tender in the epigastrium and right upper quadrant. Musculoskeletal: Extremities: Upper: Both upper extremities have normal joint range of motion and intact strength. Lower: Both lower extremities have normal joint range of motion and intact strength. Skin: Normal skin color, texture, and turgor. Neurologic: No focal deficits Psychiatric: Alert, oriented, cooperative, normal affect. Const: Vital Signs, click to edit/add: Vital Signs - 24 hr 05/31/23 05:58 05/31/23 07:18 Temperature 97.8 F 98.1 F Pulse Rate [Pulse Oximeter] 86 98 Respiratory Rate 20 18 Blood Pressure [Ri ght Upper Arm] 192/106 H 133/73 Pulse Oximetry 95 96 Oxygen Delivery Me thod Room Air Room Air Results Results Labs: Total bilirubin is 1.7 with a direct fraction measuring 0.8. AST is 286, ALT 175. Alkaline phosphatase is normal. Her CRP is elevated at 2.4. White blood cell count is within normal limits. Lipase is normal at 230. Additional studies: Review an ultrasound which was done at [facility] on 03/19/2023 shows mobile and non mobile gallstones within the gallbladder lumen consistent with cholelithiasis. Common bile duct is 5 mm. Assessment and Plan Assessment and plan (1) Cholelithiasis: Status: Acute (2) Choledocholithiasis: Status: Acute (3) Obesity: Problem comment: BMI of 45 Status: Acute (4) Sleep apnea: Problem comment: Clinically suspected. Recommend outpatient follow-up Status: Suspected Plan The patient is a 62-year-old female with likely choledocholithiasis, possibly having passed a gallstone given resolution of her pain. Because she is feeling better discussion was had with her the ER doctor about discharge home in short-term follow-up of labs verses admission for cholecystectomy this admission. I recommended cholecystectomy this admission even though her symptoms have resolved. We discussed the gallbladder anatomy and physiology and I recommended cholangiogram to ensure that there is no common bile duct stone. Because the staffing issues this will have to be postponed until tomorrow. I recommended that she postpone her colonoscopy an EGD to next week. We will help her with rescheduling that. We discussed the procedure as well as risks and benefits of surgery which include bleeding, infection, bile leak, conversion to open or injury to other structures, specifically the common bile duct. We also discussed recovery. We also discussed intraoperative cholangiogram. She understands that ERCP may be necessary if there is a common bile duct stone. This can often be done as an outpatient at an outside facility. We will plan on admission overnight, NPO at midnight and will be started labs tomorrow. No elevated white blood cell count so no need for antibiotics at this time.
[2023-05-31 15:00] VITALS: BP 165/99; RESP 18; TEMP 36.8; O2SAT 96
[2023-05-31] MEDS: ACETAMINOPHEN 325 MG TABLET 650 MG PO (18:09)
--- NOTE | 2023-05-31 19:57 | PC.NURSE ---
Pt denies pain. Tolerates clear liquids. Complained of Headache, Tylenol given per SEP with relief. NPO @0000 for sx a.m. of 06/01.
[2023-05-31 20:00] VITALS: BP 141/84; PULSE 74; RESP 18; TEMP 36.8; O2SAT 94
[2023-05-31 23:00] VITALS: BP 152/99; PULSE 77; RESP 16; TEMP 36.6; O2SAT 91
--- NOTE | 2023-05-31 23:01 | PC.NURSE ---
End of shift note, [id number]: Pt alert and oriented, pleasant and cooperative. Vitals stable, on RA. BP noted to be improved from last reading. Pt denies pain, denies headache after receiving PRN Tylenol on prior shift. Denies nausea. Plan to be NPO at midnight, pt aware. Ind in room. Continues on LR at 125ml/hr into patent R AC. at bedside until later this evening. CPAP checked by RT earlier in evening. Plan for surgery tomorrow. Pt uses call light appropriately, has within reach.
[2023-06-01] VITALS (19 sets, daily range): BP systolic 125–157; BP diastolic 62–96; PULSE 56–80; RESP 12–18; TEMP 36.3–37; O2SAT 90–98
[2023-06-01] MEDS: LACTATED RINGERS 1000 ML 1,000 ML 125 ML IV ×3 (02:15→13:57)
[2023-06-01 06:16] LABS: Basophils Absolute Auto 0.02 K/uL (0.00-0.30); Basophils Percent Auto 0.4 % (0.0-3.0); Eosinophils Absolute Auto 0.11 K/uL (0.00-0.50); Hematocrit 37.9 % (33.0-51.0); Hemoglobin* 12.3 gm/dL (12.0-16.0); Immature Granulocytes Abs Auto 0.05 K/uL (0.00-0.30); Immature Granulocytes Pct Auto 0.9 %; Lymphocytes Absolute Auto 1.51 K/uL (0.90-2.90); Lymphocytes Percent Auto 27.1 % (20-44); Mean Corpuscular HGB Conc 33 gm/dL (32-36); Mean Corpuscular Hemoglobin 30 pg (26-34); Mean Corpuscular Volume 94 fL (80-100); Monocytes Percent Auto 9.9 % (0.0-11.0); Neutrophils Absolute Auto 3.33 K/uL (1.7-7.0); Neutrophils Percent Auto 59.7 % (42.0-72.0); Platelet Count* 269 K/uL (140-440); RDW Coefficient of Variation % 12.4 % (11.5-15.5); Red Blood Count 4.05 m/uL (4.00-5.20); White Blood Count* 5.57 K/uL (4.50-11.00)
[2023-06-01 06:27] LABS: Slide Review Reflex No
--- NOTE | 2023-06-01 06:30 | PC.NURSE ---
Pt is pleasant and cooperative. She slept most of the night up x2 for the bathroom. VSS she reports no pain. Has been NPO since midnight forpossib;e surgery today.
[2023-06-01 06:33] LABS: Albumin* 3.6 g/dL (3.3-5.0); Chloride* 104 mmol/L (96-114); Sodium* 140 mmol/L (135-149)
[2023-06-01 06:34] LABS: Potassium* 3.8 mmol/L (3.6-5.1)
[2023-06-01 06:35] LABS: Creatinine* 0.7 mg/dL (0.5-1.5); Est. Creatinine Clearance* 53.16; Estimated Glomerular Filt Rate 98 ml/min
[2023-06-01 06:36] LABS: Alanine Aminotransferase* 482 U/L (4-35); Alkaline Phosphatase* 76 U/L (40-150); Anion Gap 10 mEq/L (7-15); Aspartate Amino Transferase* 327 U/L (12-35); Bilirubin Direct* 0.1 mg/dL (0.0-0.5); Bilirubin Total* 0.9 mg/dL (0.1-1.5); Blood Urea Nitrogen* 12 mg/dL (7-30); Calcium* 8.7 mg/dL (8.4-10.6); Carbon Dioxide* 26 mmol/L (20-32); Glucose* 94 mg/dL (60-115); Lipase* 235 U/L (23-300); Total Protein* 6.4 g/dL (6.0-8.3)
--- NOTE | 2023-06-01 07:19 | PM.GSPN ---
Subjective Subjective Date Seen: 06/01/23 Interval history: Stable overnight. No concerns. Ready to proceed with surgery Exam Narrative: Exam Narrative: General: No acute distress CV: Regular rate Abdomen: Protuberant. Minimally tender in the epigastric region Const: Vital Signs, click to edit/add: Vital Signs - 24 hr 05/31/23 15:00 05/31/23 20:00 05/31/23 23:00 Temperature 98.3 F 98.2 F 98 F Pulse Rate [Pulse Oximeter] 74 77 Respiratory Rate 18 18 16 Blood Pressure [Le ft Arm] 165/99 H 141/84 H 152/99 H Pulse Oximetry 96 94 91 Oxygen Delivery Me thod Room Air Room Air CPAP 06/01/23 03:00 Temperature 97.4 F L Pulse Rate [Pulse Oximeter] 79 Respiratory Rate 16 Blood Pressure [Le ft Arm] 137/77 Pulse Oximetry 97 Oxygen Delivery Me thod Room Air Labs/Imaging Labs Labs: White blood cell count is normal. Bilirubin is now normal. AST has increased to 327, ALT has increased to 482. Lipase is normal Progress Note: A&P Assessment and plan (1) Cholelithiasis: Status: Acute (2) Choledocholithiasis: Status: Acute (3) Obesity: Problem details: BMI of 45 Status: Acute Plan The patient is a 62-year-old female with cholelithiasis likely, with recent episode of choledocholithiasis. Likely she passed a stone given resolution of her LFTs and pain. I recommend cholecystectomy and we will plan on performing at today. I will also perform intraoperative cholangiogram to ensure there is not a common bile duct stone. Risks and benefits were discussed with the patient and she signed informed consent and agreed to proceed.
--- NOTE | 2023-06-01 09:52 | P.GSOP_ITS ---
Operative Note Pre-op diagnosis: Cholelithiasis with choledocholithiasis Post-op diagnosis: Same Type of Procedure: Laparoscopic cholecystectomy with intraoperative cholangiogram Indications: The patient is a 62-year-old female who presented to the emergency department with severe epigastric pain radiating to her back. She has a known history of gallstones and has had multiple episodes of biliary colic. She had been waiting to proceed with surgery until after July. However, on this presentation she was noted to have an elevated bilirubin, suggestive of choledocholithiasis. Fortunately the pain improved, however she was admitted to the hospital with plans for cholecystectomy. The following morning her LFTs had improved. She agreed to proceed with surgery. Procedure Description: After discussing the risks and benefits of the procedure, the patient signed informed consent.? The operative site was marked and the patient was brought to the operating room and placed on the operating table in supine position.? Care was taken to pad the patient's pressure points.?? The patient was then intubated by anesthesia.?? The operative site was then prepped and draped in the usual sterile fashion.? A time-out was then performed. Entrance to the abdomen was gained via a 5 mm Visiport in the left upper quadrant. The abdomen was insufflated and briefly surveyed for signs of injury. There was none. A 10 mm umbilical port was placed as well as 2 working ports along the right costal margin, all under direct vision. The patient was then placed in reverse Trendelenburg position with the right side up. The gallbladder had omental adhesions which necessitated freeing before the fundus could be grasped. When the fundus was clear, it was grasped and retracted cephalad. Additional omental adhesions were dissected free from the gallbladder. The infundibulum was grasped. A combination of hook cautery and blunt dissection was used to carefully dissect out the cystic duct and artery until they could clearly be seen entering the gallbladder without any intervening structures. The artery was clipped with 2 clips proximal 1 clip distal and divided. A clip was then placed on cystic duct/gallbladder junction and a ductotomy was created. A cholangiocatheter was then advanced into the abdomen and placed in the duct. This was clamped. A saline leak test was performed which was negative. Fluoroscopy was then brought into the field and contrast was injected into the catheter. The cystic duct, common bile duct and right left hepatic ducts filled easily. There was no filling of the duodenum. 1 mg of glucagon was then administered. We waited 5 minutes and then fluoroscopy continued to show obstruction of the distal common bile duct. I then injected more contrast however there was no flow contrast into the duodenum. The cholangiocatheter was then removed and the duct was allowed to decompress. The cystic duct was then clipped with 2 clips proximally and transected with the scissor. The gallbladder was then taken off of the liver bed and removed from the abdomen using an Endo- Catch bag. The gallbladder bed was surveyed for hemostasis which appeared adequate. A small amount of bile which had spilled was suctioned from the abdomen. Hemostasis appeared excellent, however a piece of Surgicel was placed in the gallbladder bed and over the raw surface of the omental adhesions that had been taken down. The umbilical port fascia was closed with 0 Vicryl using a Gio-Husam device to. The remaining ports were then removed and the abdomen desufflated. The skin was closed with absorbable subcuticular suture. Instrument sponge and needle counts were correct at the end of the case. The patient was then woken and transferred to the PACU in stable condition. The patient tolerated the procedure well. Findings: Cholelithiasis with no filling of the duodenum even with glucagon administration, concerning for choledocholithiasis Anesthesia: GETA Surgeon: Irene Enriquez MD Estimated blood loss (mL): 10 Specimen: Gallbladder Condition: stable Disposition: PACU Date of procedure: 06/01/23
--- NOTE | 2023-06-01 13:31 | CRLHL7_ITS ---
For Patients: As a result of the Century Cures Act, medical imaging exams and procedure reports are released immediately into your electronic medical record. You may view this report before your referring provider. If you have questions, please contact your health care provider. INDICATION : Laparoscopic cholecystectomy. TECHNIQUE : Intraoperative cholangiogram. Contrast injected via gallbladder neck and cystic duct. FINDINGS : Fluoroscopy time was 34.6 seconds. 2 images were obtained. IMPRESSION : Normal caliber intra and extrahepatic ducts. No filling defects. Contrast not visualized in the duodenum. Dictated by Reginald Denis MD @ 06/02/2023 11:31:36 AM (Electronically Signed)
[2023-06-01] MEDS: CEFAZOLIN 2 GM INJ IVP (13:45)
[2023-06-01] MEDS: 0.9% SODIUM CHL 50 ML VIAL INJECTION (14:30)
[2023-06-01] MEDS: iopamidoL 50 ML VIAL INJECTION (14:30)
[2023-06-01] MEDS: BUPIVACAINE 0.25% 30 ML INJECTION (14:30)
--- NOTE | 2023-06-01 14:37 | W.ANESCHARGE ---
Anesthesia Charges Start Date/Time Anesthesia Start Date: 06/01/23 Anesthesia Start Time: 13:30 Stop Date/Time Anesthesia Stop Date: 06/01/23 Anesthesia Stop Time: 15:23
--- NOTE | 2023-06-01 15:24 | W.ANESCHARGE ---
Anesthesia Charges Start Date/Time Anesthesia Start Date: 06/01/23 Anesthesia Start Time: 13:30 Stop Date/Time Anesthesia Stop Date: 06/01/23 Anesthesia Stop Time: 15:23
[2023-06-01] MEDS: HYDROmorphone 0.5 mg/0.5 ml inj IVP (17:18)
--- NOTE | 2023-06-01 19:15 | PC.NURSE ---
end of shift. Pt is very pleasant and cooperative. no abd pain before surgery., went to surgery. came back with 4 incision. ice to the abd. she had some upper right abd pain and got 0.5 IVP Dilaudid. she is eating and drinking., no void so far. she had some small drainage in her lap incision it was covered. she is up with 1 assist. she is hoping to go home. daughter did picker her meds.
== END 2023-06-01 21:35 | disposition home or self-care (01) ==
LOC: ED 09:29 → SS 09:54 → MEDSURG 10:00 → SS 10:12 → MEDSURG 10:29
PROVIDERS: Emergency Provider Family Medicine; PCP Family Medicine; Visit Provider Surgery
PROC: 0FT44ZZ Resection of Gallbladder, Percutaneous Endoscopic Approach (ICD-10-PCS; CPT 47562; principal; 2023-06-01 13:15)
DX: K80.10 Calculus of gallbladder with chronic cholecystitis without obstruction (principal); E66.9 Obesity, unspecified; Z68.42 Body mass index [BMI] 45.0-49.9, adult
CPT/HCPCS: 47563; 00790; 36415; 74300; 76000; 80048; 80076; 81001; 83690; 84484; 85025; 86140; 87086; 88304; 99284; A9270; J0665; J0690; J1100; J1170; J1885; J2270; J2405; J2704; J2710; J3010; J7030; J7120; Q9967

== ENCOUNTER 2023-07-23 09:49 | Day surgery (SDC) | payer OTHER, SELFPAY ==
[2023-07-23] VITALS (20 sets, daily range): BP systolic 101–138; BP diastolic 63–85; PULSE 62–97; RESP 12–18; TEMP 36.2–37.1; O2SAT 92–98; BMI 45.8
[2023-07-23] MEDS: LACTATED RINGERS 1000 ML 1,000 ML 100 ML IV (08:55)
--- NOTE | 2023-07-23 09:53 | W.PM.H&PU ---
History & Physical Update History & Physical Update H&P Updates: She had a laparoscopic cholecystectomy since the last time we saw each other. She recovered well without complications. No other interval changes.
--- OUTSIDE RECORDS SUMMARY | 2023-07-23 09:53 | XMS_ITS | Clinical Summary ---
Author Name Unknown Organization [facility] Address [place], [place] [address] Care Team Providers Care Wool Handler Name Role Phone Sandy Colon Unavailable Danay Zaidi MD Primary Care Provider Allergies No known active allergies Medications Medication Sig Dispensed Refills Start Date End Date Status multivitamin (MVI) tablet Take 1 tablet by mouth once daily. 0 Active amLODIPine (NORVASC) 5 mg tabletIndication s:Hypertension, unspecified type Take 1 Tablet (5 mg) by mouth once daily. 90 Tablet 3 03/19/2023 Active losartan (COZAAR) 50 mg tabletIndication s:Hypertension, unspecified type Take 1 Tablet (50 mg) by mouth two times daily. 180 Tablet 3 03/19/2023 Active metoprolol succinate (TOPROL XL) 50 mg sustained-releas e tabletIndication s:Hypertension, unspecified type Take 1 Tablet (50 mg) by mouth once daily. 90 Tablet 3 03/19/2023 Active omeprazole 20 mg tabletIndication s:Abdominal pain, epigastric Take 1 Tablet (20 mg) by mouth once daily before a meal. 30 Tablet 0 04/28/2023 Active omeprazole (PRILOSEC) 20 mg Delayed-Release capsuleIndicatio ns:Chronic GERD TAKE ONE CAPSULE BY MOUTH ONE TIME DAILY WITH A MEAL. 90 Capsule 2 05/19/2023 Active polyethylene glycol-electroly te (GOLYTELY) 236-22.74-6.74 -5.86 gram suspensionIndica tions:Encounter for screening colonoscopy Drink 2 liters the day before colonoscopy and 2 liters 6 hours before colonoscopy appiontment 4000 mL 0 09/07/2023 Active CPAPIndications: BRIGIDA (obstructive sleep apnea) CPAP machine for home use at pressure 7-15 cmw; starting pressure between 4-6 adjust as needed, full face mask x1/3month with a full face cushion x1/mo 1 Each 11 07/17/2023 Active CPAPIndications: BRIGIDA (obstructive sleep apnea) CPAP machine for home use at pressure 6-15 cmw; starting pressure between 4-6 adjust as needed, full face mask x1/3month with a full face cushion x1/mo 1 Each 11 04/22/2023 4 Discontinue d(Reorder (E-cancel not sent)) HYDROcodone-acet aminophen (5-325 mg/tablet) Take 1-2 Tablets by mouth every 6 hours if needed for Pain. Max acetaminophen dose: 4000 mg in 24 hrs. 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 Primary osteoarthritis of right knee 08/03/2019 Overview: July 2019: Dr. Harris did cortisone injection to right knee. 85% benefit at 4 weeks. November 2020: Repeat right knee cortisone injection by Dr. Harris . Aug 2021: Repeat right knee cortisone injection. Morbid obesity with BMI of 45.0-49.9, adult 06/14 Ductal carcinoma in situ of breast 01/03/2011 Contact dermatitis and other eczema, due to unspecified cause 09/28/2009 Other acne 09/28/2009 HTN (hypertension) 09/15/2008 Overview: Updated by system to replace inactive record Resolved Problems Problem Noted Date Diagnosed Date Resolved Date Dysplasia of cervix, low grade (PATY 1) 04/14/2022 03/26/2023 Overview: Needs Pap smear and HPV in 1 year 04/2023 Encounters Date Type Department Care Team Description 07/17/2023 10:00 AM GARBAGE COLLECTOR DRIVER [facility] [address] [place] [address] Robel Ray MD Sleep Follow-up 07/17/2023 Travel 07/15/2023 10:50 AM GARBAGE COLLECTOR DRIVER [facility] [address] [place] [address] Danay Zaidi MD Pre-Op Exam (DOS 07/23/2023, hysterectomy, [facility], Dr Correa) 07/15/2023 Travel 07/14/2023 Telephone [facility] [address] [place] [address] Danay Zaidi MD Error-please disregard 06/08/2023 Telephone [facility] [address] [place] [address] Dean Swain MD Pre Procedure (colonoscopy) 06/06/2023 Telephone [facility] [address] [place] [address] Danay Zaidi MD Screening (COLONOSCOPY & EGD) 06/03/2023 1:35 PM GARBAGE COLLECTOR DRIVER Anesthesia Event [facility] [address] [place] [address] Naresh Briceno MD 06/03/2023 1:25 PM GARBAGE COLLECTOR DRIVER - 06/03/2023 2:55 PM GARBAGE COLLECTOR DRIVER Surgery [facility] [address] [place] [address] Andrés Corey MD ENDOSCOPIC ULTRASOUND UPPER 06/03/2023 12:12 PM GARBAGE COLLECTOR DRIVER - 06/03/2023 4:05 PM GARBAGE COLLECTOR DRIVER Hospital Encounter [facility] [address] [place] [address] Andrés Corey MD Discharge Disposition: Home Self Care 06/02/2023 Travel 06/01/2023 9:00 AM GARBAGE COLLECTOR DRIVER Office [facility] at [facility] [address] [place] [address] Irene Enriquez MD 06/01/2023 Orders Only [facility] Scanner 1 scan: (1-Ord) [place], CHOLANGIOGRAM, 06/01/2023 06/01/2023 Orders Only [facility] Scanner 1 scan: (1-Ord) [facility], LAPAROSCOPIC CHOLECYSTECTOMY, 06/01/2023 06/01/2023 Lab Requisition [facility] [phone] Irene Enriquez MD 06/01/2023 Orders Only [facility] [address] [place] [address] Irene Enriquez MD <No scans attached> 06/01/2023 Travel 05/26/2023 9:35 AM GARBAGE COLLECTOR DRIVER Preop Visit [facility] [address] [place] [address] Danay Zaidi MD Pre-Op Exam (Dr Swain, 06/01/2023, [facility], ) 05/26/2023 Travel 05/18/2023 Refill [facility] [address] [place] [address] Danay Zaidi MD Refill Request (Omeprazole) 05/07/2023 Lab Requisition [facility] [phone] Lea Correa MD 05/05/2023 Telephone [facility] [address] [place] [address] Danay Zaidi MD Results 05/04/2023 9:45 AM CDT Ancillary Procedure [facility] [address] [place] [address] 05/04/2023 Travel 04/29/2023 Telephone [facility] [address] [facility] [facility] [address] Danay Zaidi MD 04/28/2023 9:35 AM CDT Procedure Only [facility] [address] [place] [address] Danay Zaidi MD Procedure (Colposcopy/) 04/28/2023 Travel 04/23/2023 8:15 AM CDT Ancillary Procedure [facility] [address] [place] [address] Canceled (Per Provider) 04/22/2023 4:00 PM CDT Office [facility] [address] [facility] [place] [address] Robel Ray MD Sleep Consult (HST results) 04/22/2023 Travel from Last 3 Months Immunizations Name Administration Dates Next Due COVID-19 vaccine (Pfizer-Bio NTech 30mcg/0.3mL) 12YO+ BIVALENT PF, MDV 09/03/2022 COVID-19 vaccine (Pfizer-Bio NTech 30mcg/0.3mL) 12YO+ TREMAINE-SUCROSE PF, MDV 02/12/2022 COVID-19 vaccine (Pfizer-Bio NTech 30mcg/0.3mL) PF, MDV 06/26/2021,10/27/2020,10/06/2020 Influenza Virus, Unspecified 04/26/2018,04/22/20 17,04/22/2016 Influenza, IIV3 (Age >=3 years) 04/19/20 14,04/19/2013,04/13/2012,2010,05/13/2009,06/03/2006 Influenza, IIV4 05/26/2023,06/26/2021,04/26/2019 Influenza, IIV4 (=>6mos) MDV 06/20/2022 Influenza, Whole Virus 04/16/2015 Td (Age >=7 Years) 09/06/2002 Tdap 02/12/2022,04/24/2011 Family History Medical History Relation Name Comments Cancer Father Esophogeal CA a nd bladder CA (smoker) Unknown Maternal Grandfather Diabetes Maternal Grandmother Diabetes Mother Hypertension Mother Osteoporosis Mother Heart Disease Paternal Grandfather Unknown Paternal Grandmother at 96 Diabetes Sister Cancer-breast No Family History Cancer-colon No Family History Cancer-ovarian No Family History Cancer-prostate No Family History Relation Name Status Comments Father (Age 79) Maternal Grandfather Maternal Grandmother Mother Paternal Grandfather Paternal Grandmother Sister Social History Tobacco Use Types Packs/Day Years Used Date Smoking Tobacco: Never Smokeless Tobacco: Never Tobacco Cessation:Counseling Given: Yes Alcohol Use Standard Drinks/Week Comments Yes 0 (1 standard drink = 0.6 oz pure alcohol) once weekly, 2 drinks at a sitting Humiliation, Afraid, Rape, and Kick questionnair e Answer Date Recorded Fear of Current or Ex-Partner No Emotionally Abused No 06/01/2019 Physically Abused No 06/01/2019 Sexually Abused No 06/01/2019 PHQ-2 Answer Date Recorded PHQ-2 TOTAL SCORE 0 03/19/2023 [facility] Questionnaire Answer Date Recorded Feeling of Stress Not at all 06/01/2019 Exercise Vital Sign Answer Date Recorde d Days of Exercise per Week 0 days 2018 Minutes of Exercise per Session 0 min 06/01/2019 Social Connections Answer Date Recorded Frequency of Communication with Friends and Fami ly 0 05/26/2023 Alcohol Use Answer Date Recorded How often do you have a drink containing alcohol ? 2 04/09/2022 How many drinks containing a lcohol do you have on a typical day when you are drinking? 0 04/09/2022 How often do you have five or more drinks on one occasion? 1 04/09/2022 Financial Resource Strain Answer Date R ecorded Difficulty of Paying Living Expenses 3 05/26/2023 Difficulty of Paying Living Expenses Not on file 05/26/2023 Food Insecurity Answer Date Recorded Worried About Running Out of Food in the Last Ye ar 1 05/26/2023 Transportation Needs Answer Date Record ed Lack of Transportation (Medical) 1 05/26/2023 Housing Stability Answer Date Recorded Unable to Pay for Housing in the Last Year 1 05/26/2023 Sex and Gender Information Value Date Recorded Sex Assigned at Not on file Gender Identity Not on file Sexual Orientation Not on file Obstetrics History Para Term AB IAB SAB Ectopic Multiple Livin g Live Births 2 2 2 Date Outcome GA Total Labor Labor/2nd/3rd Weight Sex Delivery Anes PTL Suzi A1 A5 Name Cl in Radha ng Radha ng Last Filed Vital Signs Vital Sign Reading Time Taken Comments Blood Pressure 142/84 07/17/2023 10:01 AM GARBAGE COLLECTOR DRIVER Pulse 75 07/17/2023 10:01 AM GARBAGE COLLECTOR DRIVER Temperature 36.8 ??C (98.2 ??F) 06/03/2023 2:15 PM CS T Respiratory Rate 16 06/03/2023 3:30 PM GARBAGE COLLECTOR DRIVER Oxygen Saturation 99% 07/17/2023 10:01 AM GARBAGE COLLECTOR DRIVER Inhaled Oxygen Concentration - - Weight 122 kg (269 lb) 07/17/2023 10:01 AM GARBAGE COLLECTOR DRIVER Height 163.4 cm (5' 4.33) 07/17/2023 10:[address] Body Mass Index 45.7 07/17/2023 10:01 AM GARBAGE COLLECTOR DRIVER Plan of Treatment Upcoming Encounters Date Type Department Care Team (Late st Contact Info) Description 08/11/2023 9:00 AM GARBAGE COLLECTOR DRIVER Ancillary Procedure [facility] [address] [place] [address] 09/02/2023 10:50 AM GARBAGE COLLECTOR DRIVER Preop Visit [facility] [address] [place] [address] Danay Zaidi MD [address] [place] [address] 09/03/2023 8:15 AM GARBAGE COLLECTOR DRIVER Office Visit [address] [phone] Reji Cantrell-Shane Zamudio MD [facility] [address] [address] 09/14/2023 9:15 AM GARBAGE COLLECTOR DRIVER Procedure Only [facility] at [address] [address] Dean Swain MD [address] [place] [address] Health Maintenance Due Date Last Done Comments Pneumococcal series for age 6-64 (1 of 2 - PCV) 1967 Zoster (shingles) series for age 50+ (1 of 2) 1980 COVID-19 vaccine series (2022-24 season) 2023 09/03/2022, 02/12/2022, 06/26/2021, Additional history exists Mammogram for age 45-75 07/30/2023 07/30/19 23, 06/24/2021, 05/14/2020, Additional history exists Colonoscopy through age 75 11/30/2023 06/01/2023 Depression screening for age 12+ 03/19/2024 03/19/2023, 02/12/2022, 12/19/2020, Additional history exists BMI (ht and wt on same day) for age 18+ 07/17/2024 07/17/2023, 07/15/2023, 05/26/2023, Additional history exists Pap test for age 21-65 04/28/2026 (Verified in Care Everywhere or Patient Record), 03/19/2023, 03/19/2023, Additional history exists Lipids for age 45-75 03/19/2028 03/19/2023, 02/12/2022, 12/19/2020, Additional history exists Tetanus booster 02/13/2032 02/12/2022, 04/12, 09/06/2002 Hepatitis C screening for ag e 18-79 Completed 03/09/2014 Fecal testing non-DNA (FIT,FOBT,iFOBT) for age 45-75 Discontinued 02/10/2022, 01/07/2021, 06/08/2019, Additional history exists Tdap Completed 02/12/2022, 04/24/2011 HIV for age 15-65 Completed 09/03/2022 Fecal testing sDNA-FIT (Cologuard) for age 45-75 Discontinued 04/10/2023 Influenza for age 50-64 Completed 05/26/20 23, 06/20/2022, 06/26/2021, Additional history exists Goals Goal Patient Goal Type Associated Problems Recent Progress Patient-Stated? Author BLOOD PRESSURE-MA INTAINS BP LESS THAN 130/80 Blood Pressure No Maribel Ramírez NP Procedures Procedure Name Priority Date/Time Associated Diagnosis Comments POTASSIUM Routine 07/15/2023 12:05 PM GARBAGE COLLECTOR DRIVER Pre-op exam HEPATIC FUNCTION PANEL Routine 12:05 PM GARBAGE COLLECTOR DRIVER Pre-op exam HEMOGLOBIN Routine 07/15/2023 12:05 PM GARBAGE COLLECTOR DRIVER Pre-op exam ENDOTRACHEAL TUBE Routine 06/03/2023 2:57 PM GARBAGE COLLECTOR DRIVER ENDOTRACHEAL TUBE Routine 06/03/2023 2:57 PM GARBAGE COLLECTOR DRIVER ENDOTRACHEAL TUBE Routine 06/03/2023 2:57 PM GARBAGE COLLECTOR DRIVER XR ERCP BILIARY ONLY Routine 06/03/2023 2:10 PM GARBAGE COLLECTOR DRIVER ENDOSCOPY 06/03/2023 1:45 PM GARBAGE COLLECTOR DRIVER ENDOSCOPIC RETROGRADE CHOLANGIOPANCREATOGRAPHY WITH SPHINCTEROTOMY AND STONE REMOVAL Class E Urgent 06/03/2023 1:30 PM GARBAGE COLLECTOR DRIVER see MD note ENDOSCOPIC ULTRASOUND UPPER Class E Urgent 06/03/2023 1:30 PM GARBAGE COLLECTOR DRIVER see MD note ENDOSCOPY 06/03/2023 1:22 PM GARBAGE COLLECTOR DRIVER LAB TRACKING EVENT Routine 06/01/2023 2:51 PM GARBAGE COLLECTOR DRIVER PATH TISSUE EXAM Routine 06/01/2023 2:51 PM GARBAGE COLLECTOR DRIVER ESOPHAGOGASTRODUODENOSCOPY ABE 06/01 8:13 AM GARBAGE COLLECTOR DRIVER Pharyngoesophageal dysphagia COLONOSCOPY SCREENING Routine 06/01/2023 8:13 AM GARBAGE COLLECTOR DRIVER Positive colorectal cancer screening using DNA-based stool test SCAN-RADIOLOGY REPORT 06/01/2023 12:00 AM GARBAGE COLLECTOR DRIVER SCAN-OPERATIVE/PROCEDURE REPORT 06/01/2023 12:00 AM GARBAGE COLLECTOR DRIVER POTASSIUM Routine 05/26/2023 10:10 AM GARBAGE COLLECTOR DRIVER Pre-op exam LAB TRACKING EVENT Routine 05/06/2023 12:30 PM CDT PATH TISSUE EXAM Routine 05/06/2023 12:30 PM CDT US ABDOMEN LIMITED RUQ Routine 10:03 AM CDT Abdominal pain, epigastric PATH TISSUE EXAM Routine 04/28/2023 10:20 AM CDT ASCUS with positive high risk HPV cervical PATY I (cervical intraepithelial neoplasia I) from Last 3 Months Results * HEMOGLOBIN (07/15/2023 12:05 PM GARBAGE COLLECTOR DRIVER) HEMOGLOBIN 13.2 12.0 - 16.0 g/dL 07/15/2023 12:10 PM GARBAGE COLLECTOR DRIVER [facility] MCV 92 80 - 100 fL 07/15/2023 12:10 PM GARBAGE COLLECTOR DRIVER [facility] Blood BLOOD SPECIMEN / Unknown Venipuncture / Unknown 07/15/2023 12:05 PM GARBAGE COLLECTOR DRIVER 07/15/2023 12:06 PM GARBAGE COLLECTOR DRIVER Danay Zaidi MD HEMATOLOGY [facility] [address] [place] [address], * POTASSIUM (07/15/2023 12:05 PM GARBAGE COLLECTOR DRIVER) Only the most recent of2 resultswithin the time period is included. POTASSIUM 4.3 3.5 - 5.1 mmol/L 07/15/2023 9:52 PM GARBAGE COLLECTOR DRIVER [facility] Blood BLOOD SPECIMEN / Unknown Venipuncture / Unknown 07/15/2023 12:05 PM GARBAGE COLLECTOR DRIVER 07/15/2023 12:06 PM GARBAGE COLLECTOR DRIVER Danay Zaidi MD CHEMISTRY Performing Organization Address [facility]/ZIP Co de Phone Number [facility] [address] [place] [address], [place] * LIVER PANEL (HEPATIC FUNCTION PANEL) (07/15/2023 12:05 PM GARBAGE COLLECTOR DRIVER) ALBUMIN 4.1 4.0 - 4.9 g/dL 07/15/2023 9:52 PM GARBAGE COLLECTOR DRIVER [facility] PROTEIN,TOTAL 6.9 6.0 - 8.0 g/dL 07/15/2023 9:52 PM GARBAGE COLLECTOR DRIVER [facility] BILIRUBIN,TOTAL 0.3 0.0 - 1.2 mg/dL 07/15/2023 9:52 PM GARBAGE COLLECTOR DRIVER [facility] BILIRUBIN,DIRECT <0.2 0.0 - 0.3 mg/dL 07/15/2023 9:52 PM GARBAGE COLLECTOR DRIVER [facility] BILIRUBIN,INDIRE CT 07/15/2023 9:52 PM GARBAGE COLLECTOR DRIVER [facility] Comment:Unable to calculate, Direct Bili <0.2 ALK PHOSPHATASE 57 35 - 104 IU/L 07/15/2023 9:52 PM GARBAGE COLLECTOR DRIVER [facility] ALT (SGPT) 20 10 - 35 IU/L 07/15/2023 9:52 PM GARBAGE COLLECTOR DRIVER [facility] AST (SGOT) 25 10 - 35 IU/L 07/15/2023 9:52 PM GARBAGE COLLECTOR DRIVER [facility] Blood BLOOD SPECIMEN / Unknown Venipuncture / Unknown 07/15/2023 12:05 PM GARBAGE COLLECTOR DRIVER 07/15/2023 12:06 PM GARBAGE COLLECTOR DRIVER Danay Zaidi MD CHEMISTRY Performing Organization Address [facility]/ZIP Co de Phone Number [facility] [address] [place] [address], [place] * HCHG TUBE PR1, HCHG INSTRUMENT DISP PR10, HCHG STYLET PR1 (06/03/2023 2:57 PM GARBAGE COLLECTOR DRIVER) Narrative Naresh Briceno MD - 06/03/2023 2:57 PM GARBAGE COLLECTOR DRIVER Naresh Briceno MD ? 06/03/2023 ??2:58 PM Procedure: ETT Patient location during procedure: OR ETT Properties Mask Ventilation: easy Final Technique: video laryngoscopy Type: straight Location: oral Cuffed: yes Tube Size: 7.0 mm Stylet: yes Laryngoscope Blade: Glidescope Blade Size: 3 Cormack-Lehane Grade View: 1 Insertion Attempts: 1 Placement Verification: auscultation, end tidal CO2, symmetrical chest wall movement and cuff palpation Assessment: pharynx clear, atraumatic and dentition unchanged Secured at: 22 Measured From: lips Bite Block: soft Difficulty: 0 (not difficult) Naresh Briceno MD ANESTHESIA PX NOTE ORDERABLES * XR ERCP BILIARY ONLY (06/03/2023 2:10 PM GARBAGE COLLECTOR DRIVER) Anatomical Region Laterality Modality GALLBLADDER, PANCREAS, LIVER Oth er Narrative 06/03/2023 1:48 PM GARBAGE COLLECTOR DRIVER 2 minutes 18 seconds fluoroscopy time was provided. ??See operative/procedure report for further information. Andrés Corey MD FLUOROSCOPY * ENDOSCOPY (06/03/2023 1:45 PM GARBAGE COLLECTOR DRIVER) 06/03/2023 1:45 PM GARBAGE COLLECTOR DRIVER Narrative Transcriptions Andrés Corey MD - 06/03/2023 3:17 PM [facility] Patient Name: Olga Griffiths Procedure Date: 06/03/2023 Gender: Female Date of : 1960 Admit Type: Ambulatory Procedure: ERCP Proceduralist: Andrés Corey MD - [facility] Referring MD: Irene Enriquez Indications/Pre-Op Diagnosis: Bile duct stone(s) Medications: General Anesthesia Procedure Description: Risk of bleeding, infection, perforation, pancreatitis, need for surgery, remote chance of and alternatives were discussed, andthe patient gave informed consent. The endoscope [id number] was passed through the mouth, and advanced to the duodenum and used to inject contrast into the bileduct. The ERCP was accomplished without difficulty. The patient toleratedthe procedure well. Complications: No immediate complications. Estimated Blood Loss & Specimen: Estimated blood loss: none. Specimen collected: None Findings: The scope was passed under direct vision through the upper GI tract.The entire examined stomach was normal. The examined duodenum was normal. The major papilla was normal. The bile duct was deeply cannulatedwith the short-nosed traction sphincterotome and guidewire. Contrast was injected. I personally interpreted the bile duct images. There wasbrisk flow of contrast through the ducts. Image quality was excellent. Contrast extended to the hepatic ducts. The lower third of the mainbile duct contained one stone, which was 4 mm in diameter. Biliary sphincterotomy was made with a traction (standard) sphincterotome.There was no post-sphincterotomy bleeding. The biliary tree was swept witha 9 mm balloon starting at the bifurcation. One stone was removed. Nostones remained. Impressions/Post-Op Diagnosis: - Choledocholithiasis was found. Complete removal was accomplished by biliary sphincterotomy and balloon extraction. Recommendation: - Watch for pancreatitis, bleeding, perforation, and cholangitis. Andrés Corey MD 06/03/2023 3:17:43 PM This report has been signed electronically. Note Initiated On: 06/03/2023 1:45 PM Andrés Corey MD PROCEDURE ORD * ENDOSCOPY (06/03/2023 1:22 PM GARBAGE COLLECTOR DRIVER) 06/03/2023 1:22 PM GARBAGE COLLECTOR DRIVER Narrative Transcriptions Andrés Corey MD - 06/03/2023 3:16 PM CST [facility] Patient Name: Olga Griffiths Procedure Date: 06/03/2023 Gender: Female Date of : 1960 Admit Type: Ambulatory Procedure: Upper EUS Proceduralist: Andrés Corey MD - [facility] Referring MD: Irene Enriquez Indications/Pre-Op Diagnosis: Suspected choledocholithiasis Medications: Monitored Anesthesia Care Procedure Description: Risk of bleeding, infection, perforation, pancreatitis, need for surgery, remote chance of and alternatives were discussed, andthe patient gave informed consent. The endoscope [id number] was introduced through the mouth, and advanced to the third part of duodenum. The upper EUS wasaccomplished without difficulty. The patient tolerated the procedure well. Complications: No immediate complications. Estimated Blood Loss & Specimen: Estimated blood loss: none. Specimen collected: None Findings: ENDOSCOPIC FINDING: : The entire examined stomach was normal. The examined duodenum was normal. ENDOSONOGRAPHIC FINDING: : One stone was visualized endosonographically in the common bile duct. The stone measured 3 mm in greatest dimension. It was hyperechoic and characterized by shadowing. There was no sign of significant endosonographic abnormality in theleft lobe of the liver and in the right lobe of the liver. No focalpathology was identified. There was no sign of significant endosonographic abnormality in the pancreatic head. The pancreatic duct measured up to 3 mm in diameter.No masses, no cysts. Impressions/Post-Op Diagnosis: - One stone was visualized endosonographically in the common bileduct. Recommendation: - Perform an ERCP. Andrés Corey MD 06/03/2023 3:16:20 PM This report has been signed electronically. Note Initiated On: 06/03/2023 1:22 PM Andrés Corey MD PROCEDURE ORD * LAB TRACKING EVENT (06/01/2023 2:51 PM GARBAGE COLLECTOR DRIVER) Only the most recent of2 resultswithin the time period is included. Other (Other) Client Collect / Unknown 06/01/2023 2:51 PM GARBAGE COLLECTOR DRIVER 06/01/2023 9:24 PM GARBAGE COLLECTOR DRIVER Irene Enriquez MD LAB BILL ONLY [facility] [address] [place] [address], * PATH TISSUE EXAM (06/01/2023 2:51 PM GARBAGE COLLECTOR DRIVER) Only the most recent of3 resultswithin the time period is included. Case Report Pathology Report ?Case: [id number] ? Authorizing Provider: ??Irene Enriquez MD ??Collected: ? 06/01/2023 1451 ? Ordering Location: ? [facility] ?Received: ?06/02/2023 0828 ? Pathologist: ? Poncho Garcia ? MD ROSA M ? Specimen: ?Gallbladder ? 06/03/2023 3:10 PM [facility] Final Diagnosis A) GALLBLADDER, CHOLECYSTECTOMY: 1. Chronic cholecystitis 2. Cholelithiasis 3. Negative for dysplasia and malignancy 06/03/2023 3:10 PM [facility] LABORATORY-C ENTRAL LABORATORY Clinical Information Ms. Griffiths is a 62 y.o. who undergoes cholecystectomy. 06/03/2023 3:10 PM [facility] LABORATORY-C ENTRAL LABORATORY Gross Description A) Received in formalin, labeled with the patient's name and gallbladder, is a 6.3 x 3.0 x 1.7 cm partially disrupted gallbladder. ??There is a single yellow gallstone identified. There is fine yellow stippling in the mucosa; no other lesions are identified. The average wall thickness is 0.2 cm. There is no abnormal wall thickening identified. No cystic duct lymph node is identified. [employer] Pilot sections are submitted in one cassette. TRS 06/02/2023 06/03/2023 3:10 PM [facility] LABORATORY-C ENTRAL LABORATORY Microscopic Description The final diagnosis is based on microscopic examination of appropriate sections of all specimens. 06/03/2023 3:10 PM [employer]ARBAGE COLLECTOR DR[employer] [facility]-C ENTRMA LABORATORY Additional Information Interpreted at [facility] - [address], [place] [address] 06/03/2023 3:10 PM [employer]ARBAGE COLLECTOR DRIVER [facility]- ENTRAL LABORATORY Other SPECIMEN FROM GALLBLADDER / Unknown 06/01/2023 2:51 PM GARBAGE COLLECTOR DRIVER 06/02/2023 8:28 AM GARBAGE COLLECTOR DRIVER Irene Enriquez MD PATHOLOGY/CYTOLO GY [facility]-CENTRAL LABORATORY [address] [place] [address], [place] * SCAN-RADIOLOGY REPORT (06/01/2023 12:00 AM GARBAGE COLLECTOR DRIVER) Anatomical Region Laterality Modality Other Scanner OTHER * SCAN-OPERATIVE/PROCEDURE REPORT (06/01/2023 12:00 AM GARBAGE COLLECTOR DRIVER) Scanner OTHER * US ABDOMEN LIMITED RUQ (05/04/2023 10:03 AM CDT) Anatomical Region Laterality Modality Abdomen, LIVER Ultrasound 05/04/2023 10:1 0 AM CDT Impressions 05/04/2023 10:10 AM CDT Mobile and nonmobile gallstones within the gallbladder lumen consistent with cholelithiasis. Dictated by Reginald Denis MD @ May 04 2023 10:10AM (Electronically Signed) ?? Narrative 05/04/2023 10:10 AM CDT For Patients: ??As a result of the 21st Century Cures Act, medical imaging exams and procedure reports are released immediately into your electronic medical record. ??You may view this report before your referring provider. ??If you have questions, please contact your health care provider. INDICATION: Right upper quadrant pain COMPARISON: none TECHNIQUE: Real time levin scale imaging and color Doppler analysis was performed of the right upper quadrant. FINDINGS: The patient`s liver is of normal size and has diffusely increased echogenicity. There is a normal appearance of the visualized hepatic IVC and proximal abdominal aorta. There is no evidence of ascites. The gallbladder is of normal size and there is an echogenic gallstone within the gallbladder neck measuring 1.2 cm. An additional gallstone is present measuring 1.3 cm. One of the stones is mobile and the other is nonmobile. The gallbladder wall measures 1.6 mm in thickness. ??The common bile duct is of normal size and measures 5.2 mm in diameter at the level of the karyn hepatis. ??The pancreas is not well-visualized. There is no evidence of a stone or hydronephrosis within the right kidney. ??The right kidney measures 10.9 cm in length. ?? Procedure Note Reginald Denis MD - 05/04/2023 For Patients: As a result of the Cures Act, medical imagingexams and procedure reports are released immediately into your electronicmedical record. You may view this report before your referring provider.If you have questions, please contact your health care provider. INDICATION: Right upper quadrant pain COMPARISON: none TECHNIQUE: Real time levin scale imaging and color Doppler analysis was performed ofthe right upper quadrant. FINDINGS: The patient`s liver is of normal size and has diffusely increasedechogenicity. There is a normal appearance of the visualized hepatic IVCand proximal abdominal aorta. There is no evidence of ascites. Thegallbladder is of normal size and there is an echogenic gallstone withinthe gallbladder neck measuring 1.2 cm. An additional gallstone is presentmeasuring 1.3 cm. One of the stones is mobile and the other is nonmobile.The gallbladder wall measures 1.6 mm in thickness. The common bile ductis of normal size and measures 5.2 mm in diameter at the level of theporta hepatis. The pancreas is not well-visualized. There is no evidenceof a stone or hydronephrosis within the right kidney. The right kidneymeasures 10.9 cm in length. IMPRESSION: Mobile and nonmobile gallstones within the gallbladder lumen consistentwith cholelithiasis. Dictated by Reginald Denis MD @ May 04 2023 10:10AM (Electronically Signed) Danay Zaidi MD from Last 3 Months Advance Directives Latest Code Status on File Code Status Date Activated Date Inactivated Comments Full Code 06/03/2023 12:59 PM 06/03/2023 6:11 PM Question Answer Comments Code Status Discussion: Unable to Assess Preferences, Provider to review later Code Status History Code Status Date Activated Date Inactivated Comments Full Code 06/03/2023 12:59 PM 06/03/2023 12:59 PM Question Answer Comments Code Status Discussion: Unable to Assess Preferences, Provider to review later Full Code 12/26/2019 8:05 AM 12/26/2019 3:06 PM Question Answer Comments Code Status Discussion: Discussed Full Code 01/06/2011 11:48 AM 01/06/2011 6:28 PM Full Code 12/26/2010 11:30 AM 12/26/2010 7:32 PM Care Teams Wool Handler Relationship Specialty Start Date End Date Danay Zaidi MD [address] [place] [address] PCP - General Family Practice 06/01/19 Sandy Colon [employer] [address] [address] Oncology 04/11/15
[2023-07-23 10:57] LABS: Hemoglobin* 13.6 gm/dL (12.0-16.0)
[2023-07-23 11:11] LABS: Creatinine* 0.7 mg/dL (0.5-1.5); Est. Creatinine Clearance* 51.02; Estimated Glomerular Filt Rate 98 ml/min
[2023-07-23] MEDS: SODIUM CHLORIDE 0.9 % (FLUSH) 10 ML SYRINGE IVF (11:46)
[2023-07-23] MEDS: CEFAZOLIN 1 GM inj 3 GM IVP (12:08)
[2023-07-23] MEDS: 0.9 % SODIUM CHLORIDE 50 ml INJECTION (12:30)
[2023-07-23] MEDS: VASOPRESSIN 20 UNIT/ML INJ INJECTION (12:30)
--- NOTE | 2023-07-23 12:38 | W.ANESCHARGE ---
Anesthesia Charges Start Date/Time Anesthesia Start Date: 07/23/23 Anesthesia Start Time: 11:50 Stop Date/Time Anesthesia Stop Date: 07/23/23 Anesthesia Stop Time: 16:11
[2023-07-23] MEDS: ESTROGENS, CONJUGATED VAGINAL 0.625 MG/G CREAM 1 APPLIC VAGINAL (15:41)
--- NOTE | 2023-07-23 16:16 | W.ANESCHARGE ---
Anesthesia Charges Start Date/Time Anesthesia Start Date: 07/23/23 Anesthesia Start Time: 11:50 Stop Date/Time Anesthesia Stop Date: 07/23/23 Anesthesia Stop Time: 16:11
--- NOTE | 2023-07-23 16:57 | PM.GYNPRHY ---
Procedure Type of Hysterectomy: Vaginal Pre-op/Post-op diagnoses: Pre-Op/Post-Op Diagnoses Operation Date: 07/23/23 11:10 <No data on this case meets the specified criteria> Procedure: Procedures Operation Date: 07/23/23 11:10 Actual Procedure Side Surgeon p M/S - Total Vaginal Hysterectomy, Bilateral Salpingectomy, Left Oopherectomy, Cystoscopy Lea Correa MD Anesthesia type: Spinal Narrative: Preoperative diagnosis: 62-year-old 2 para 2 with persistent cervical dysplasia. Postoperative diagnosis: Same Procedure: Total vaginal hysterectomy, bilateral salpingectomy, left oophorectomy, left mediolateral episiotomy, left mediolateral episiotomy repair, and cystoscopy Anesthesia: General, local Surgeon: Lea Correa MD library circulation assistant: Monae Alexander MD Second bindery library technical assistant: ASHLI Jacobson QBL: 315 mL IV Fluid: 1.6 L Urine output: 1.5 mL Drains: Otero to gravity: Clear urine at the end of the procedure, Vaginal pack in place Specimen: Uterus with cervix, bilateral fallopian tubes, and left ovary to pathology Uterine weight: 75g Complications: Increased bleeding Hemostasis agent: 1 g of TXA and Delia Findings: On exam under anesthesia: Uterus is mid position, 6 week size. Dense scar tissue from previous episiotomy noted. Prolapse: Grade II rectocele primarily with in the vaginal canal. The perineal body is well supported. Other: Bilateral tubes and ovaries were normal. Left oophorectomy performed due to persistent bleeding. Diagnostic cystoscopy was performed using normal saline as the insufflation medium. The bladder was noted to be without injury and no evidence of any sutures from the vaginal cuff causing injury. Normal urine flow was noted through both ureteral orifices. Methylene blue was used to visualize the urine more easily. Procedure: Olga was taken to the operating room where general anesthesia was found be adequate. She is placed in the dorsal lithotomy position with yellow fins and an exam under anesthesia performed with the findings stated above. She was then prepped and draped in a sterile manner. A Otero catheter was placed. A weighted speculum was placed in the posterior aspect of the vaginal introitus. The cervix was grasped with 2 single-toothed tenaculums and the cervix circumferentially injected dilute vasopressin, 20 units diluted in 50 mL of saline. A circumferential incision was made around the cervix with a scalpel. The anterior vaginal mucosa was grasped with an Allis clamp and the anterior cul-de-sac formed with Metzenbaum scissors. The peritoneum was grasped an with toothed forceps and attempt at entry into the peritoneum was difficult. Attention was then turned towards making the anterior colpotomy. The posterior cul-de-sac was entered sharply with Solomon scissors and a long weighted speculum was placed. Pedicles of the hysterectomy were formed using Rolly clamps. All pedicles were Rolly transfixed. The 1st pedicle was formed on the patient's left incorporating the uterosacral ligament. This was divided and Nita transfixed. These sutures were tagged with a small clamp. The right uterosacral ligament was grasped in the 1st right pedicle that pedicle was divided, Rolly transfixed in the sutures held with a small Sandra clamp. After ligation of bilateral uterosacral ligaments, there was more descent so anterior entry was attempted again. The peritoneum of the anterior cul-de-sac was identified and the peritoneum was entered sharply with Metzenbaum scissors. This opening was extended with blunt pressure and a Barton retractor placed through the opening. Attention was then turned back towards ligation of subsequent pedicles. Sequential pedicles were then formed using Nita clamps, all pedicles were divided sharply and Rolly transfixed. Brisk bleeding was noted from one of the left pedicles. Due to the brisk bleeding and poor visualization, decision was made to performed a left mediolateral episiotomy to help with exposure. The bleeding pedicle was identified and secure with free tie and fore and a half stitch. At the level of the cornea at the utero ovarian ligament ligament were cross-clamped with a Nita clamp and divided. The cornual pedicles were doubly suture ligated: 1st with an 0 Vicryl free tie followed by an 0 Vicryl stick tie in a fore and aft manner. There was continued bleeding at site of the left ovary that was not responsive to suture ligation. Decision was made to performed left oophorectomy for hemostasis. This was done with the Impact LigaSure. The Impact LigaSure was used to perform bilateral salpingectomy. All pedicles were noted to be hemostatic. The long weighted speculum was removed and the short weighted speculum replaced in the vaginal introitus. The peritoneum was identified circumferentially and grasped with 2 Allis clamps. There was significant bleeding from The peritoneum was closed using a 2-0 Vicryl in a purse-string manner. Delia was applied for extra hemostasis. The weighted speculum removed. The vaginal cuff was re-approximated using 0 Vicryl sutures in a figure of X manner vertically. The uterosacral pedicles were incorporated into each apex of the vaginal cuff. Excellent hemostasis was noted. Attention was turned to performing the episiotomy repair. Episiotomy was repaired in a running continuous locking fashion with 2-0 Vicryl. Diagnostic cystoscopy was performed. Diagnostic cystoscopy was performed using normal saline as the insufflation medium. The bladder was noted to be without injury and no evidence of any sutures from the vaginal cuff causing injury. Normal urine flow was noted through both ureteral orifices. A vaginal pack with Premarin cream was placed in the vaginal canal to be removed tomorrow morning by the physician. Sponge, lap and instrument counts were correct x2 at the end of the procedure and the patient was taken to the recovery room in stable condition. Prior to the procedure the patient received: 3g Ancef for antibiotic prophylaxis. Antibiotic was redosed at the end of the case
[2023-07-23] MEDS: KETOROLAC 30 MG/ML inj IVP (17:35)
[2023-07-23] MEDS: LACTATED RINGERS 1000 ML 1,000 ML 125 ML IV (18:16)
[2023-07-23 20:20] LABS: Hematocrit 40.1 % (33.0-51.0); Hemoglobin* 13.3 gm/dL (12.0-16.0); Immature Granulocytes Pct Auto 0.1 %; Lymphocytes Percent Auto 4.8 % (20-44); Mean Corpuscular HGB Conc 33 gm/dL (32-36); Mean Corpuscular Hemoglobin 30 pg (26-34); Mean Corpuscular Volume 92 fL (80-100); Monocytes Percent Auto 1.5 % (0.0-11.0); Neutrophils Percent Auto 93.6 % (42.0-72.0); Platelet Count* 315 K/uL (140-440); RDW Coefficient of Variation % 12.2 % (11.5-15.5); Red Blood Count 4.38 m/uL (4.00-5.20); White Blood Count* 14.95 K/uL (4.50-11.00)
[2023-07-23 20:54] LABS: Slide Review Reflex No
[2023-07-23] MEDS: ACETAMINOPHEN 500 MG TABLET 1000 MG PO (21:16)
[2023-07-24 02:57] VITALS: BP 126/82; PULSE 91; RESP 18; TEMP 37.1; O2SAT 95
[2023-07-24 03:00] VITALS: PULSE 91; RESP 18
[2023-07-24 05:22] LABS: Hemoglobin* 12.4 gm/dL (12.0-16.0)
[2023-07-24 05:37] LABS: Creatinine* 0.7 mg/dL (0.5-1.5); Est. Creatinine Clearance* 51.02; Estimated Glomerular Filt Rate 98 ml/min
--- NOTE | 2023-07-24 08:24 | P.DS_ITS ---
DS: Providers Provider Time Seen by Provider: 08:24 Date Seen: 07/24/23 Primary care physician: Danay Zaidi MD Attending Physician on discharge: Lea Correa MD Date of Discharge: 07/24/23 DS: Diagnosis Discharge Diagnosis (1) S/P hysterectomy: Status: Acute Problem details: Vaginal hysterectomy with bilateral salpingectomy and left oophorectomy on 07/23/2023 (2) Obesity: Status: Acute Problem details: BMI of 45 (3) Sleep apnea: Status: Suspected Problem details: Clinically suspected. Recommend outpatient follow-up (4) Hypertension: Status: Acute Problem details: Resume blood pressure medicines as needed (5) Cervical dysplasia: Status: Acute TECHNICAL SALES SPECIALIST-Discharge Summary Hospital Course Hospital Course Narrative: Olga is a 62 year old admitted on 07/23/2023 for schedule surgery Surgery performed: (1) Total vaginal hysterectomy (2) Bilateral salpingectomy (3) Left oophorectomy (4) Diagnostic cystoscopy. Indication for surgery: Persistent cervical dysplasia. Intraoperative findings were: uterus is mid position, 6 week size. Dense scar tissue from previous episiotomy noted. Prolapse: Grade II rectocele primarily with in the vaginal canal. The perineal body is well supported. Other: Bilateral tubes and ovaries were normal. Left oophorectomy performed due to persistent bleeding. Diagnostic cystoscopy was performed using normal saline as the insufflation medium. The bladder was noted to be without injury and no evidence of any sutures from the vaginal cuff causing injury. Normal urine flow was noted through both ureteral orifices. Methylene blue was used to visualize the urine more easily. Surgery was complicated by increased bleeding that was controlled intraoperative. Postoperative course has been uneventful. Vitals have been stable. She has remained afebrile. Today, on postoperative day 1, she reports the pain is well controlled. She has been able to ambulate Without difficulty. She is tolerating regular diet. She is passing flatus. Vora catheter has been removed, and she is voiding without difficulty. Vaginal pack was removed by myself with minimal blood. Time Spent with Patient Time attestation: Total time spent providing and/or coordinating discharge services: Time spent: Less than 30 minutes TECHNICAL SALES SPECIALIST - Exam Physical Exam: Vital signs: Temp Pulse Resp BP Pulse Ox O2 Del Method O2 Flow Rate 98.7 F 91 18 126/82 95 Room Air 1.5 07/24/23 02:57 07/24/23 03:00 07/24/23 03:00 07/24/23 02:57 07/24/23 02:57 07/24/23 02:57 07/23/23 17:22 Narrative: Physical exam: General: No acute distress Psych: Alert and oriented x4, full affect HEENT: Normocephalic, atraumatic Neck: No cervical adenopathy, no thyromegaly Heart: Regular rate and rhythm, no murmur rub or gallop Lungs: Clear to auscultation bilaterally Abdomen: Normoactive bowel sounds, soft, no tenderness, rebound, or guarding Skin: Bruising on left side of abdomen and left thigh Lower extremities: No edema or erythema. Rayray hoses in place Pelvic exam: Vaginal packing removed with scant bleeding. Scant bleeding noted on pad. TECHNICAL SALES SPECIALIST - DS: Data Data Completed and Pending Labs on day of discharge: Labs from last 24 hours 07/24/23 07/23/23 07/23/23 05:15 20:15 10:42 WBC 14.95 H RBC 4.38 Hgb 12.4 13.3 13.6 Hct 40.1 MCV 92 MCH 30 MCHC 33 RDW Coeff of Darryl 12.2 Plt Count 315 Neut % (Auto) 93.6 H Lymph % (Auto) 4.8 L [place] % (Auto) 1.5 Eos % (Auto) 0.0 Baso % (Auto) 0.0 Neut # (Auto) 14.00 H Lymph # (Auto) 0.70 L [place] # (Auto) 0.20 Eos # (Auto) 0.00 Baso # (Auto) 0.00 Abs Immat Gran (auto) 0.00 Imm/Tot Granulo (auto) 0.1 Creatinine 0.7 0.7 Estimated Creat Clear 51.02 51.02 Estimated GFR 98 98 Blood Type O Positive Antibody Screen NEGATIVE Procedures Procedures: Procedures Operation Date: 07/23/23 11:10 Actual Procedure Side Surgeon p M/S - Total Vaginal Hysterectomy, Bilateral Salpingectomy, Left Oopherectomy, Cystoscopy Lea Correa MD Discharge Plan Discharge Disposition: Home, Self-Care Discharging Surgeon: Lea Correa Follow-Up Appointment: 2 weeks postop and 6-8 weeks postop- F/U Appts 08/06 @ 9am & 09/07 @ 9am. Prescriptions: New acetaminophen 500 mg Tablet 1,000 mg PO Q6H PRN30 Days Qty: 60 0RF Dermoplast (with menthol) 20-0.5 % aerosol 1 spray topical QID PRN30 Days Qty: 56 1RF docusate sodium 100 mg Capsule 100 mg PO BID PRN (Reason: Constipation) 30 Days Qty: 60 0RF ibuprofen 600 mg Tablet 600 mg PO Q6H PRN (Reason: Pain) 30 Days Qty: 60 0RF simethicone 80 mg Tablet,Chewable 160 mg PO Q4H PRN (Reason: gas) 30 Days Qty: 60 0RF oxycodone 5 mg Tablet 5 mg PO Q4H PRN (Reason: Moderate Pain) 14 Days Qty: 20 0RF Continued amlodipine 5 mg tablet 5 mg PO DAILY losartan 50 mg tablet 50 mg PO BID metoprolol succinate 50 mg tablet extended release 24 hr 50 mg PO DAILY Patient Comments: TAKE ONE TABLET BY MOUTH ONE TIME DAILY omeprazole 20 mg capsule,delayed release(DR/EC) 20 mg PO QDAY Additional Instructions: F/U Appts are scheduled with Dr. Correa at the [facility] for 08/06 @ 9am & 09/07 @ 9am. VAGINAL HYSTERECTOMY POSTOPERATIVE INSTRUCTIONS ACTIVITY * No heavy lifting/pushing/pulling for 4-6 weeks. Do not lift anything more than about 15 lbs (such as laundry, groceries, children, pets), vacuum, push heavy doors or grocery carts, etc. You may climb stairs as tolerated. * Do not put anything in the vagina for 6-8 weeks after surgery unless otherwise instructed by your doctor (including tampons, douching, sexual intercourse, etc). * No driving for about 2 weeks after surgery, while you are taking narcotic pain medication, or until you feel that you are ready. Practice checking your blind spot and stepping hard on the brake. * Avoid sitting or lying in bed for more than 2 hours at a time while you are awake to reduce your risk of blood clots. * You may return to work when directed by your physician. Please contact your doctor if you need any return to work letters or medical leave paperwork to be completed. WOUND CARE * You will have incisions in your vagina. There will be dissolvable stitches that do not need to be removed. * Shower daily after surgery. No tub baths until wound is completely healed. * Wash your hands frequently, especially before touching your incision, changing any dressings, after using the restroom, and before eating. PAIN MANAGEMENT * Take your oral pain medication as needed. You should be taking Ibuprofen 600mg every 6 hours with 1000 mg of Tylenol every 6 hours. You can take these together every six hours or alternate them every 3 hours. You should then take the oxycodone as needed if you have breakthrough pain on top of the Tylenol and Ibuprofen. * Some pain medications can cause constipation so you should take a stool softener (i.e. colace/senna) while you are on these medications. * You may also take milk of magnesia or Miralax for constipation. WHAT TO EXPECT AT HOME * Recovery from surgery is generally 2-4 weeks, but sometimes longer for more strenuous activity. It is normal to be very tired during this time. * It is normal to have some drainage or a small amount of vaginal bleeding after surgery which may last up to 6 weeks. * You may go home with a vora catheter in your bladder. If so, you will need to follow up for a nurse visit in 7-10 days for removal. * You will most likely experience gas pain, abdominal swelling, or shoulder pain for 24-72 hours after surgery. A warm shower, heating pad, and/or walking may help. WHEN TO CALL YOUR DOCTOR : * Fever (>100.4?F or 38.0?C) or chills. * Incision problems such as redness, warmth, swelling, or foul-smelling drainage. * Severe nausea or persistent vomiting. * Bright red vaginal bleeding (soaking >1 pad/hour) or foul-smelling vaginal drainage. * Severe pain not relieved with pain medication. * Pain and swelling in your legs, especially if it is only on one side and not the other. * Pain with urination, cloudy urine, or foul-smelling urine. * Or if you have any other problems or questions. CALL 911 OR GO TO THE EMERGENCY ROOM IF YOU HAVE: Any shortness of breath, difficulty breathing, or chest pain. Forms: Work/School Release Follow-up: Danay Zaidi MD [Primary Care Provider] - Discharge Orders: Discharge Order (Routine); Ordered 07/24/23 Ordered By: Lea Correa
[2023-07-24 08:40] VITALS: BP 120/79; PULSE 84; RESP 16; TEMP 37.2; O2SAT 96
== END 2023-07-24 11:35 | disposition home or self-care (01) ==
LOC: OR 09:51 → OB 10:03
PROVIDERS: PCP Family Medicine; Visit Provider Obstetrics & Gynecology
PROC: (CPT 58262; principal; 2023-07-23 11:00)
DX: N87.9 Dysplasia of cervix uteri, unspecified (principal); N81.2 Incomplete uterovaginal prolapse; N87.0 Mild cervical dysplasia; N84.0 Polyp of corpus uteri; N80.00 Endometriosis of the uterus, unspecified; N90.89 Other specified noninflammatory disorders of vulva and perineum; N99.61 Intraoperative hemorrhage and hematoma of a genitourinary system organ or structure complicating a genitourinary system procedure; I10 Essential (primary) hypertension; E66.9 Obesity, unspecified; Z68.42 Body mass index [BMI] 45.0-49.9, adult
CPT/HCPCS: 58262; 58999; 00944; 36415; 82565; 85018; 85025; 86850; 86900; 86901; 88309; A9270; J0330; J0690; J1100; J1170; J1200; J1630; J1885; J2405; J2704; J3010; J3475; J3490; J7120

== ENCOUNTER 2024-02-10 08:30 | Outpatient (RCR) | payer OTHER, SELFPAY ==
[2024-01-21 08:17] VITALS: BP 120/73; PULSE 115; RESP 16; TEMP 36.9; O2SAT 96
[2024-01-21] MEDS: 0.9 % SODIUM CHLORIDE 1000 ml 1,000 ML IV (08:35)
[2024-01-25 14:00] VITALS: BP 138/85; PULSE 75; RESP 16; TEMP 36.1; O2SAT 97
[2024-01-25] MEDS: 0.9 % SODIUM CHLORIDE 1000 ml 1,000 ML IV (14:40)
[2024-01-25] MEDS: SODIUM CHLORIDE 0.9 % (FLUSH) 10 ML SYRINGE IVF (15:24)
[2024-01-27 10:20] VITALS: BP 116/78; PULSE 94; RESP 16; TEMP 36.1; O2SAT 95
[2024-01-27] MEDS: 0.9 % SODIUM CHLORIDE 1000 ml 1,000 ML IV (10:34)
[2024-01-29 09:08] VITALS: BP 121/78; PULSE 92; RESP 17; TEMP 36.6; O2SAT 97
[2024-01-29] MEDS: SODIUM CHLORIDE 0.9 % (FLUSH) 10 ML SYRINGE IVF (09:15)
[2024-01-29] MEDS: 0.9 % SODIUM CHLORIDE 1000 ml 1,000 ML IV (09:17)
[2024-02-01 14:01] VITALS: BP 134/83; PULSE 89; RESP 18; TEMP 37.1; O2SAT 97
[2024-02-01] MEDS: SODIUM CHLORIDE 0.9 % (FLUSH) 10 ML SYRINGE IVF (14:19)
[2024-02-01] MEDS: 0.9 % SODIUM CHLORIDE 1000 ml 1,000 ML IV (14:20)
[2024-02-03] MEDS: 0.9 % SODIUM CHLORIDE 1000 ml 1,000 ML IV (08:44)
[2024-02-05 09:25] VITALS: BP 125/81; PULSE 103; RESP 16; TEMP 35.9; O2SAT 97
[2024-02-05] MEDS: 0.9 % SODIUM CHLORIDE 1000 ml 1,000 ML IV (09:45)
[2024-02-05] MEDS: SODIUM CHLORIDE 0.9 % (FLUSH) 10 ML SYRINGE IVF (10:28)
[2024-02-08 10:52] VITALS: BP 115/74; PULSE 95; RESP 16; TEMP 36.8; O2SAT 95
[2024-02-08] MEDS: 0.9 % SODIUM CHLORIDE 1000 ml 1,000 ML IV (10:52)
[2024-02-08] MEDS: SODIUM CHLORIDE 0.9 % (FLUSH) 10 ML SYRINGE IVF (10:52)
[2024-02-10 08:36] VITALS: BP 131/82; PULSE 93; TEMP 36.6; O2SAT 98
[2024-02-10] MEDS: 0.9 % SODIUM CHLORIDE 1000 ml 1,000 ML IV (08:52)
[2024-02-10] MEDS: SODIUM CHLORIDE 0.9 % (FLUSH) 10 ML SYRINGE IVF (08:52)
--- NOTE | 2024-02-10 09:05 | ONC.NURNOTE ---
Patient stated she feels she is on the upswing of things since finishing radiation. Stated her is pushing her to drink more water. She did have a rootbeer float last night and some eggs this morning with malt-o-meal. Educated on signs and symptoms of dehydration and to be aware of the heat outside. Educated patient to call radiation if she feels she is getting worse and taking in enough fluids. Patient verbally understood plan.
== END 2024-07-19 23:59 | disposition home or self-care (01) ==
LOC: CCIC 08:30
PROVIDERS: PCP Family Medicine; Referring Provider Family Medicine; Visit Provider Internal Medicine
DX: C01 Malignant neoplasm of base of tongue (principal)
CPT/HCPCS: 96360; J7030

== ENCOUNTER 2024-07-21 14:15 | Outpatient (RCR) | payer OTHER, SELFPAY | END 2024-07-22 07:38 | disposition home or self-care (01) | PROVIDERS: PCP Family Medicine; Visit Provider Radiology Radiation Oncology | DX: I89.0 Lymphedema, not elsewhere classified (principal); C77.0 Secondary and unspecified malignant neoplasm of lymph nodes of head, face and neck; Z51.89 Encounter for other specified aftercare | CPT/HCPCS: 92507; 92522; 92610; 97110; 97112; 97140; 97162; 97166; 97530; 97535; X5282 ==